=== PATIENT | male | born 1955 ===

== ENCOUNTER 2018-01-28 08:32 | Inpatient (IN) | payer BC ==
--- NOTE | 2018-01-28 11:03 | RAD ---
Date of service: 01/28/2018 HISTORY: pre op COMPARISON: No prior. TECHNIQUE: Chest PA and lateral FINDINGS: LUNGS: No active pulmonary disease. PLEURA: No significant pleural effusion identified. No pneumothorax apparent. CARDIOVASCULAR: No aortic atherosclerotic calcification present. Normal cardiac size. No pulmonary vascular congestion. OSSEOUS STRUCTURES: No significant abnormalities. VISUALIZED UPPER ABDOMEN: Normal. OTHER FINDINGS: None. IMPRESSION: No active disease.
--- NOTE | 2018-01-28 11:07 | ED PDOC ---
HPI: Back Time Seen by Provider: 01/28/18 09:00 Chief Complaint (Nursing): Back Pain Chief Complaint (Provider): Back Pain History Per: Patient, Family (Son) History/Exam Limitations: no limitations Onset/Duration Of Symptoms: Days (x4 months ago ) Additional Complaint(s): Nohelia Hernández is a 62 year old male with a past medical history of Hypertension and pinched nerve in upper back, who presents to the emergency department complaining of pain in the right arm and back. Patient states that the pain started x4 months ago and gradually got worse since. 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 Patient also reports that he fell x3 years ago. PMD: Dr. Denise Past Medical History Reviewed: Historical Data, Nursing Documentation, Vital Signs Vital Signs: Last Vital Signs Temp 98.2 F 01/28/18 08:42 Pulse 70 01/28/18 08:42 Resp 19 01/28/18 08:42 BP 155/76 H 01/28/18 08:42 Pulse Ox 98 01/28/18 08:42 - Medical History PMH: HTN Denies: Chronic Kidney Disease - Surgical History Surgical History: No Surg Hx - Family History Family History: States: Unknown Family Hx - Social History Current smoker - smoking cessation education provided: No Alcohol: None Drugs: Denies - Immunization History Hx Tetanus Toxoid Vaccination: No Hx Influenza Vaccination: Yes Hx Pneumococcal Vaccination: No - Home Medications Home Medications: Ambulatory Orders Medication Instructions Recorded Pregabalin [Lyrica] 100 mg PO Q12 01/28/18 RX: Aspirin [Ecotrin] 81 mg PO DAILY 01/28/18 RX: Losartan [Cozaar] 50 mg PO DAILY 01/28/18 RX: Naproxen [Naprosyn] 500 mg PO Q12 01/28/18 - Allergies Allergies/Adverse Reactions: Allergies Allergy/AdvReac Type Severity Reaction Status Date / Time No Known Allergies Allergy Verified 01/28/18 08:42 Review of Systems ROS Statement: Except As Marked, All Systems Reviewed And Found Negative Musculoskeletal: Positive for: Arm Pain, Back Pain Physical Exam - Reviewed Nursing Documentation Reviewed: Yes Vital Signs Reviewed: Yes - Physical Exam Appears: Positive for: Non-toxic, No Acute Distress Head Exam: Positive for: ATRAUMATIC, NORMOCEPHALIC Skin: Positive for: Normal Color, Warm, Dry Eye Exam: Positive for: Normal appearance, EOMI, PERRL ENT: Positive for: Normal ENT Inspection Neck: Positive for: Normal, Painless ROM, Supple Cardiovascular/Chest: Positive for: Regular Rate, Rhythm. Negative for: Murmur Respiratory: Positive for: Normal Breath Sounds. Negative for: Respiratory Distress Gastrointestinal/Abdominal: Positive for: Normal Exam, Soft. Negative for: Tenderness Back: Positive for: Normal Inspection. 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 Negative for: Motor/Sensory Deficits, Aphasia, Facial Droop - Laboratory Results Result Diagrams: 01/28/18 11:50 01/28/18 11:50 - ECG O2 Sat by Pulse Oximetry: 98 (RA) Pulse Ox Interpretation: Normal Medical Decision Making Medical Decision Making: Time: 10:17 Initial Plan: acute on chronic upper back and arm pain --BBK Type and screen test --EKG --CMP --Cbc with differential --PTT --PT --Chest x-ray --Morphine 2 mg IV --Urine culture --Urinalysis Time: 10:59 Chest X-ray FINDINGS: LUNGS: No active pulmonary disease. PLEURA: No significant pleural effusion identified. No pneumothorax apparent. CARDIOVASCULAR: No aortic atherosclerotic calcification present. Normal cardiac size. No pulmonary vascular congestion. OSSEOUS STRUCTURES: No significant abnormalities. VISUALIZED UPPER ABDOMEN: Normal. OTHER FINDINGS: None. IMPRESSION: No active disease. Time: 11:14 Case was discussed with Dr. Byrd who was covering for Dr. Denise. Dr. Byrd recommends patient be admitted. dr ford will consult. pt agreeable. Scribe Attestation: Documented by Lane Marcelo, acting as a scribe for Vladimir Meraz MD. Provider Scribe Attestation: All medical record entries made by the Scribe were at my direction and personally dictated by me. I have reviewed the chart and agree that the record accurately reflects my personal performance of the history, physical exam, medical decision making, and the department course for this patient. I have also personally directed, reviewed, and agree with the discharge instructions and disposition. Disposition - Clinical Impression Clinical Impression: Chronic back pain - Patient ED Disposition Is Patient to be Admitted: Yes Counseled Patient/Family Regarding: Studies Performed, Diagnosis - Disposition Disposition Time: 11:15 Condition: STABLE
[2018-01-28] MEDS ORDERED: Morphine 4 MG/ML VIAL ONE (11:44)
[2018-01-28] MEDS ORDERED: Morphine 4 MG/ML VIAL IV ONE (11:45)
[2018-01-28 12:03] LABS: BASO % 0.7 % (0.0-2.0); EOS # 0.1 K/uL (0.0-0.7); EOS % 2.2 % (0.0-4.0); HEMOGLOBIN 12.3 g/dL (12.0-18.0); LYMPH # 1.7 K/uL (1.0-4.3); LYMPH % 30.3 % (20.0-40.0); MEAN CELL VOLUME 82.1 fl (80.0-94.0); MEAN CORPUSCULAR HEMOGLOBIN 26.3 pg (27.0-31.0); MEAN PLATELET VOLUME 7.9 fl (7.2-11.7); MONO # 0.7 K/uL (0.0-0.8); MONO % 12.1 % (0.0-10.0); NEUT % 54.7 % (50.0-75.0); NRBC % 0.1 % (0.0-0.0); RBC 4.7 Mil/uL (4.40-5.90); RED CELL DISTRIBUTION WIDTH 14.8 % (11.5-14.5); WHITE BLOOD COUNT 5.5 K/uL (4.8-10.8)
[2018-01-28 12:08] LABS: SQUAMOUS EPITHIAL < 1 /hpf (0-5); URINE BACTERIA RARE (<OCC); URINE BILIRUBIN NEGATIVE (NEGATIVE); URINE BLOOD NEGATIVE (NEGATIVE); URINE CLARITY CLEAR (Clear); URINE COLOR YELLOW (YELLOW); URINE GLUCOSE (UA) NEG (Normal); URINE LEUKOCYTE ESTERASE NEG Leu/uL (Negative); URINE PROTEIN NEGATIVE (NEGATIVE); URINE UROBILINOGEN 0.2-1.0 mg/dL (0.2-1.0)
[2018-01-28 12:14] LABS: INR 1.1; PROTHROMBIN TIME 12.2 Seconds (9.8-13.1)
[2018-01-28 12:17] LABS: PARTIAL THROMBOPLASTIN TIME 29.6 Seconds (25.6-37.1)
[2018-01-28 12:27] LABS: ALT/SGPT 28 U/L (21-72); AST/SGOT 26 U/L (17-59)
[2018-01-28 12:38] LABS: ALB/GLOB RATIO 1.3 (1.0-2.1); ALBUMIN 4.2 g/dL (3.5-5.0); BLOOD UREA NITROGEN 22 mg/dl (9-20); CALCIUM 9.2 mg/dL (8.4-10.2); GFR NON-AFRICAN AMERICAN > 60
--- NOTE | 2018-01-28 12:43 | CP.PCM.HP ---
History of Present Illness - History of Present Illness History of Present Illness: 62 year old male with a past medical history of Hypertension who presents to the emergency department complaining of pain in the right arm and back. patient states history of pinched nerve in her back. He states that the pain started 4 months ago and gradually got worse since. He has been trying conservative management for pain w/o improvement. He denies recent fever, chill, cough, sob, CP, T/N/W in upper and lower ext. 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 He also reports that he fell 3 years ago. PMD: Dr. Denise PMH: HTN, chronic back pain Meds: as bellow PSH: none FMH: denies NKDA SH: denies tobacco or ilicit drugs, etoh occasional. Present on Admission - Present on Admission Any Indicators Present on Admission: No Review of Systems - Review of Systems All systems: reviewed and no additional remarkable complaints except (HPI) Past Patient History - Past Social History Smoking Status: Never Smoked - CARDIAC Hx Cardiac Disorders: Yes - PULMONARY Hx Respiratory Disorders: No - NEUROLOGICAL Hx Neurological Disorder: No - HEENT Hx HEENT Problems: No - RENAL Hx Chronic Kidney Disease: No - ENDOCRINE/METABOLIC Hx Endocrine Disorders: No - HEMATOLOGICAL/ONCOLOGICAL Hx Blood Disorders: No - INTEGUMENTARY Hx Dermatological Problems: No - MUSCULOSKELETAL/RHEUMATOLOGICAL Hx Musculoskeletal Disorders: No - GASTROINTESTINAL Hx Gastrointestinal Disorders: No - GENITOURINARY/GYNECOLOGICAL Hx Genitourinary Disorders: No - PSYCHIATRIC Hx Psychophysiologic Disorder: No Hx Substance Use: No - SURGICAL HISTORY Hx Surgeries: No - ANESTHESIA Hx Anesthesia: No Meds Allergies/Adverse Reactions: Allergies Allergy/AdvReac Type Severity Reaction Status Date / Time No Known Allergies Allergy Verified 01/28/18 08:42 Physical Exam - Constitutional Appears: No Acute Distress - Head Exam Head Exam: NORMAL INSPECTION - Eye Exam Eye Exam: EOMI - Respiratory Exam Respiratory Exam: Clear to Auscultation Bilateral, NORMAL BREATHING PATTERN - Cardiovascular Exam Cardiovascular Exam: REGULAR RHYTHM, +S1, +S2 - GI/Abdominal Exam GI & Abdominal Exam: Normal Bowel Sounds, Soft. absent: Distended, Tenderness - Back Exam Back exam: vertebral tenderness (thoracic spine) - Neurological Exam Neurological exam: Alert, CN II-XII Intact, Oriented x3 - Skin Skin Exam: Dry, Warm Results - Vital Signs Recent Vital Signs: Last Vital Signs Temp 98.2 F 01/28/18 12:22 Pulse 70 01/28/18 12:22 Resp 19 01/28/18 12:22 BP 155/76 H 01/28/18 12:22 Pulse Ox 98 01/28/18 11:18 - Labs Result Diagrams: 01/28/18 11:50 01/28/18 11:50 Labs: Laboratory Results - last 24 hr 01/28/18 01/28/18 01/28/18 11:50 11:50 11:50 WBC 5.5 RBC 4.70 Hgb 12.3 Hct 38.6 MCV 82.1 MCH 26.3 L MCHC 32.0 L RDW 14.8 H Plt Count 300 MPV 7.9 Neut % (Auto) 54.7 Lymph % (Auto) 30.3 [place] % (Auto) 12.1 H Eos % (Auto) 2.2 Baso % (Auto) 0.7 Neut # (Auto) 3.0 Lymph # (Auto) 1.7 [place] # (Auto) 0.7 Eos # (Auto) 0.1 Baso # (Auto) 0.0 PT INR APTT Sodium 141 Potassium 4.4 Chloride 104 Carbon Dioxide 27 Anion Gap 14 BUN 22 H Creatinine 0.9 Est GFR ( Amer) > 60 Est GFR (Non-Af Amer) > 60 Random Glucose 97 Calcium 9.2 Total Bilirubin 0.3 AST 26 ALT 28 Alkaline Phosphatase 44 Total Protein 7.5 Albumin 4.2 Globulin 3.3 Albumin/Globulin Ratio 1.3 Urine Color Yellow Urine Clarity Clear Urine pH 6.0 Ur Specific [place] 1.025 Urine Protein Negative Urine Glucose (UA) Neg Urine Ketones Negative Urine Blood Negative Urine Nitrate Negative Urine Bilirubin Negative Urine Urobilinogen 0.2-1.0 Ur Leukocyte Esterase Neg Urine RBC (Auto) 2 Urine Microscopic WBC < 1 Ur Squamous Epith Cells < 1 Urine Bacteria Rare BBK History Checked 01/28/18 01/28/18 11:50 11:50 WBC RBC Hgb Hct MCV MCH MCHC RDW Plt Count MPV Neut % (Auto) Lymph % (Auto) [place] % (Auto) Eos % (Auto) Baso % (Auto) Neut # (Auto) Lymph # (Auto) [place] # (Auto) Eos # (Auto) Baso # (Auto) PT 12.2 INR 1.1 APTT 29.6 Sodium Potassium Chloride Carbon Dioxide Anion Gap BUN Creatinine Est GFR ( Amer) Est GFR (Non-Af Amer) Random Glucose Calcium Total Bilirubin AST ALT Alkaline Phosphatase Total Protein Albumin Globulin Albumin/Globulin Ratio Urine Color Urine Clarity Urine pH Ur Specific [place] Urine Protein Urine Glucose (UA) Urine Ketones Urine Blood Urine Nitrate Urine Bilirubin Urine Urobilinogen Ur Leukocyte Esterase Urine RBC (Auto) Urine Microscopic WBC Ur Squamous Epith Cells Urine Bacteria BBK History Checked No verified bt Assessment & Plan - Assessment and Plan (Free Text) Assessment: 62 yo male patient with PMH of HTN and back pain admitted due to intractable back pain. For OR tomorrow with Dr Sykes Plan: - afebrile, stable - labs reviewed all wnl - CXR no active lung disease - Pain management - for neurosurgical procedure tomorrow - NPO after midnight - resumed home meds - rest of plan as ordered - medically cleared for surgery Case seen and examined with Dr Byrd.
[2018-01-28] MEDS ORDERED: Oxycodone/Acetaminophen 5/325 mg Tab PO PRN (13:05)
--- NOTE | 2018-01-28 18:49 | CARD ---
APPROVED REPORT Date of service: 01/28/2018 EKG Measurement Heart [id number] <Conclusion> Normal sinus rhythm Possible Left atrial enlargement Right bundle branch block Left anterior fascicular block Bifascicular block Left ventricular hypertrophy T wave abnormality, consider inferolateral ischemia Abnormal ECG
[2018-01-28] MEDS ORDERED: Naproxen 500 MG TAB PO SCH (21:00)
[2018-01-29] MEDS ORDERED: Pneumococcal 23-Valent Vaccine IM ONE (02:51)
--- NOTE | 2018-01-29 07:00 | CP.PCM.CON ---
History of Present Illness - History of Present Illness History of Present Illness: I was asked to see patient by Dr Byrd. Patient seen 01/29/18 [id number] Patient is a 62 year old male with HTN who has spinal stenosis. He complains of back pain and requires surgery. The patient also complains of dyspnea on exertion, particularly with walking up a hill. He was found to have and abnormal EKG. Review of Systems - Constitutional Constitutional: absent: As Per HPI, Anorexia, Chills, Daytime Sleepiness, Excessive Sweating, Fatigue, Fever, Frequent Falls, Headache, Increased Appetite, Lethargy, Malaise, Night Sweats, Snoring, Sleep Apnea, Weight Gain, Weight Loss, Weakness, Other - EENT Eyes: absent: As Per HPI, Blind Spots, Blurred Vision, Change in Vision, Decreased Night Vision, Diplopia, Discharge, Dry Eye, Exophthalmos, Floaters, Irritation, Itchy Eyes, Loss of Peripheral Vision, Pain, Photophobia, Requires Corrective Lenses, Sees Flashes, Spots in Vision, Tunnel Vision, Other Visual Disturbances, Loss of Vision, Other Ears: absent: As Per HPI, Decreased Hearing, Ear Discharge, Ear Pain, Tinnitus, Abnormal Hearing, Disequilibrium, Dizziness, Other Nose/Mouth/Throat: absent: As Per HPI, Epistaxis, Nasal Congestion, Nasal Discharge, Nasal Obstruction, Nasal Trauma, Nose Pain, Post Nasal Drip, Sinus Pain, Sinus Pressure, Bleeding Gums, Change in Voice, Dental Pain, Dry Mouth, Dysphagia, Halitosis, Hoarsness, Lip Swelling, Mouth Lesions, Mouth Pain, Odynophagia, Sore Throat, Throat Swelling, Tongue Swelling, Facial Pain, Neck Pain, Neck Mass, Other - Cardiovascular Cardiovascular: Dyspnea - Respiratory Respiratory: Dyspnea - Gastrointestinal Gastrointestinal: absent: As Per HPI, Abdominal Pain, Belching, Bloating, Change in Bowel Habits, Change in Stool Character, Coffee Ground Emesis, Constipation, Cramping, Diarrhea, Dyspepsia, Dysphagia, Early Satiety, Excessive Flatus, Fecal Incontinence, Heartburn, Hematemesis, Hematochezia, Loose Stools, Melena, Nausea, Odynophagia, Temesmus, Vomiting, Other - Genitourinary Genitourinary: absent: As Per HPI, Change in Urinary Stream, Difficulty Urinating, Dysuria, Flank Pain, Hematuria, Pyuria, Nocturia, Urinary Incontinence, Urinary Frequency, Urinary Hesitance, Urinary Urgency, Voiding Freq/Small Amts, Freq UTI, Hx Renal/Bladder Calculi, Hx /Renal Surgery, Bladder Distension, Other - Musculoskeletal Musculoskeletal: Neck Pain - Integumentary Integumentary: absent: As Per HPI, Acne, Alopecia, Bleeding Lesions, Change in Hair, Change in Nails, Change in Pigmentation, Changing Lesions, Dry Skin, Erythema, Furuncle, Hirsutism, Lesions, New Lesions, Non-Healing Lesions, Photosensitivity, Pruritus, Rash, Skin Pain, Skin Ulcer, Sores, Striae, Swe lling, Unusual Bruising, Wounds, Jaundice, Other - Neurological Neurological: absent: As Per HPI, Abnormal Gait, Abnormal Hearing, Abnormal Movements, Abnormal Speech, Behavioral Changes, Burning Sensations, Confusion, Convulsions, Disequilibrium, Dizziness, Numbness, Focal Weakness, Frequent Falls, Headaches, Lack of Coordination, Loss of Vision, Memory Loss, Paresthesias, Radicular Pain, Restless Legs, Sensory Deficit, Syncope, Tingling, Tremor, Vertigo, Weakness, Other Visual Disturbances, Other - Psychiatric Psychiatric: absent: As Per HPI, Abnormal Sleep Pattern, Anhedonia, Anxiety, Auditory Hallucinations, Behavioral Changes, Change in Appetite, Change in Libido, Confusion, Depression, Difficulty Concentrating, Hallucinations, Homicidal Ideation, Hopelessness, Irritability, Memory Loss, Mood Swings, Panic Attacks, Paranoia, Suicidal Ideation, Visual Hallucinations, Tactile Hallucinations, Other - Endocrine Endocrine: absent: As Per HPI, Change in Body Appearance, Change in Libido, Cold Intolorance, Deepening of Voice, Excessive Sweating, Fatigue, Flushing, Heat Intolorance, Increase in Ring/Shoe/Hat Size, Palpitations, Polydipsia, Polyphagia, Polyuria, Other - Hematologic/Lymphatic Hematologic: absent: As Per HPI, Easy Bleeding, Easy Bruising, Lymphadenopathy, Other Past Patient History - Past Medical History & Family History Past Medical History?: Yes - Past Social History Smoking Status: Never Smoked - CARDIAC Hx Cardiac Disorders: Yes - PULMONARY Hx Respiratory Disorders: No - NEUROLOGICAL Hx Neurological Disorder: No - HEENT Hx HEENT Problems: No - RENAL Hx Chronic Kidney Disease: No - ENDOCRINE/METABOLIC Hx Endocrine Disorders: No - HEMATOLOGICAL/ONCOLOGICAL Hx Blood Disorders: No Hx AIDS: No Hx Human Immunodeficiency Virus (HIV): No - INTEGUMENTARY Hx Dermatological Problems: No - MUSCULOSKELETAL/RHEUMATOLOGICAL Hx Musculoskeletal Disorders: No Hx Falls: No - GASTROINTESTINAL Hx Gastrointestinal Disorders: No - GENITOURINARY/GYNECOLOGICAL Hx Genitourinary Disorders: No - PSYCHIATRIC Hx Psychophysiologic Disorder: No Hx Substance Use: No - SURGICAL HISTORY Hx Surgeries: No - ANESTHESIA Hx Anesthesia: No Meds Allergies/Adverse Reactions: Allergies Allergy/AdvReac Type Severity Reaction Status Date / Time No Known Allergies Allergy Verified 01/28/18 08:42 - Medications Medications: Current Medications Aspirin (Ecotrin) 81 mg PO DAILY [facility] Losartan Potassium (Cozaar) 50 mg PO DAILY [facility] Naproxen (Naproxen) 500 mg PO Q12 [facility] Last Admin: 01/28/18 22:26 Dose: 500 mg Oxycodone/Acetaminophen (Percocet 5/325 Mg Tab) 1 tab PO Q4 PRN PRN Reason: Pain, moderate (4-7) Stop: 01/31/18 13:06 Pregabalin (Lyrica) 100 mg PO Q12 [facility] Last Admin: 01/28/18 22:25 Dose: 100 mg Physical Exam - Constitutional Appears: Non-toxic - Head Exam Head Exam: NORMAL INSPECTION - Eye Exam Eye Exam: Normal appearance - ENT Exam ENT Exam: Mucous Membranes Moist - Neck Exam Neck exam: Positive for: Full Rom, Normal Inspection - Respiratory Exam Respiratory Exam: NORMAL BREATHING PATTERN - Cardiovascular Exam Cardiovascular Exam: REGULAR RHYTHM. absent: Systolic Murmur - GI/Abdominal Exam GI & Abdominal Exam: Normal Bowel Sounds - Rectal Exam Rectal Exam: Deferred - Extremities Exam Extremities exam: Positive for: pedal edema - Back Exam Back exam: NORMAL INSPECTION - Neurological Exam Neurological exam: Alert, Oriented x3 - Psychiatric Exam Psychiatric exam: Normal Affect - Skin Skin Exam: Normal Color Results - Vital Signs Recent Vital Signs: Last Vital Signs Temp 97.6 F 01/29/18 01:00 Pulse 62 01/29/18 01:00 Resp 18 01/29/18 01:00 BP 119/67 01/29/18 01:00 Pulse Ox 99 01/29/18 01:00 - Labs Result Diagrams: 01/28/18 11:50 01/28/18 11:50 Labs: Laboratory Results - last 24 hr 01/28/18 01/28/18 01/28/18 11:50 11:50 11:50 WBC 5.5 RBC 4.70 Hgb 12.3 Hct 38.6 MCV 82.1 MCH 26.3 L MCHC 32.0 L RDW 14.8 H Plt Count 300 MPV 7.9 Neut % (Auto) 54.7 Lymph % (Auto) 30.3 [place] % (Auto) 12.1 H Eos % (Auto) 2.2 Baso % (Auto) 0.7 Neut # (Auto) 3.0 Lymph # (Auto) 1.7 [place] # (Auto) 0.7 Eos # (Auto) 0.1 Baso # (Auto) 0.0 PT INR APTT Sodium 141 Potassium 4.4 Chloride 104 Carbon Dioxide 27 Anion Gap 14 BUN 22 H Creatinine 0.9 Est GFR ( Amer) > 60 Est GFR (Non-Af Amer) > 60 Random Glucose 97 Calcium 9.2 Total Bilirubin 0.3 AST 26 ALT 28 Alkaline Phosphatase 44 Troponin I Total Protein 7.5 Albumin 4.2 Globulin 3.3 Albumin/Globulin Ratio 1.3 Urine Color Yellow Urine Clarity Clear Urine pH 6.0 Ur Specific [place] 1.025 Urine Protein Negative Urine Glucose (UA) Neg Urine Ketones Negative Urine Blood Negative Urine Nitrate Negative Urine Bilirubin Negative Urine Urobilinogen 0.2-1.0 Ur Leukocyte Esterase Neg Urine RBC (Auto) 2 Urine Microscopic WBC < 1 Ur Squamous Epith Cells < 1 Urine Bacteria Rare Blood Type Blood Type Confirm Antibody Screen BBK History Checked 01/28/18 01/28/18 01/28/18 11:50 11:50 12:50 WBC RBC Hgb Hct MCV MCH MCHC RDW Plt Count MPV Neut % (Auto) Lymph % (Auto) [place] % (Auto) Eos % (Auto) Baso % (Auto) Neut # (Auto) Lymph # (Auto) [place] # (Auto) Eos # (Auto) Baso # (Auto) PT 12.2 INR 1.1 APTT 29.6 Sodium Potassium Chloride Carbon Dioxide Anion Gap BUN Creatinine Est GFR ( Amer) Est GFR (Non-Af Amer) Random Glucose Calcium Total Bilirubin AST ALT Alkaline Phosphatase Troponin I Total Protein Albumin Globulin Albumin/Globulin Ratio Urine Color Urine Clarity Urine pH Ur Specific [place] Urine Protein Urine Glucose (UA) Urine Ketones Urine Blood Urine Nitrate Urine Bilirubin Urine Urobilinogen Ur Leukocyte Esterase Urine RBC (Auto) Urine Microscopic WBC Ur Squamous Epith Cells Urine Bacteria Blood Type A POSITIVE Blood Type Confirm A POSITIVE Antibody Screen Negative BBK History Checked No verified bt 01/28/18 01/29/18 19:00 04:40 WBC RBC Hgb Hct MCV MCH MCHC RDW Plt Count MPV Neut % (Auto) Lymph % (Auto) [place] % (Auto) Eos % (Auto) Baso % (Auto) Neut # (Auto) Lymph # (Auto) [place] # (Auto) Eos # (Auto) Baso # (Auto) PT INR APTT Sodium Potassium Chloride Carbon Dioxide Anion Gap BUN Creatinine Est GFR ( Amer) Est GFR (Non-Af Amer) Random Glucose Calcium Total Bilirubin AST ALT Alkaline Phosphatase Troponin I 0.0140 0.0150 Total Protein Albumin Globulin Albumin/Globulin Ratio Urine Color Urine Clarity Urine pH Ur Specific [place] Urine Protein Urine Glucose (UA) Urine Ketones Urine Blood Urine Nitrate Urine Bilirubin Urine Urobilinogen Ur Leukocyte Esterase Urine RBC (Auto) Urine Microscopic WBC Ur Squamous Epith Cells Urine Bacteria Blood Type Blood Type Confirm Antibody Screen BBK History Checked - EKG Data EKG shows normal: Sinus rhythm - EKG Data EKG comments: inferolaterla T wave inversions suggestive of ischemia Assessment & Plan (1) Dyspnea Assessment and Plan: Patient has an abnormal EKG consistent with previous ischemia. recommend evaluation for myocardial ischemia Status: Acute (2) HTN (hypertension) Assessment and Plan: blood pressure control Status: Acute (3) Pre-operative cardiovascular exam, new EKG abnormalities c/w ischemia Assessment and Plan: patient is not optimized for surgery. will need stress test given EKG abnormalities and dyspnea. Status: Acute
--- NOTE | 2018-01-29 07:17 | CP.PCM.CON ---
History of Present Illness - History of Present Illness History of Present Illness: Neurosurgical consult: Dr. Sykes Patient is a 63 y/o RHD male who presents with severe neck pain which has progressed over the past four months. He reports lifting a heavy pack of isabella material 4 months ago which initiated the neck pain. The pain has been daily, affecting his usual activities. He has tried and failed conservative management with PT and oral medications. The pain is sharp and stabbing and located diffuse posteriorly. The pain frequently radiates down both UE, worse in the right. 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 He admits to dyspnea on exertion and is currently being worked up by cardiology for ischemic changes. He denies any difficulty ambulating/SOB/N/V/D/fever/dysuria/melena. Review of Systems - Review of Systems Review of Systems: as per HPI Past Patient History - Past Medical History & Family History Past Medical History?: Yes Past Family History: Reviewed and not pertinent - Past Social History Smoking Status: Never Smoked Alcohol: Occasional Drugs: Denies - CARDIAC Hx Cardiac Disorders: Yes - PULMONARY Hx Respiratory Disorders: No - NEUROLOGICAL Hx Neurological Disorder: No - HEENT Hx HEENT Problems: No - RENAL Hx Chronic Kidney Disease: No - ENDOCRINE/METABOLIC Hx Endocrine Disorders: No - HEMATOLOGICAL/ONCOLOGICAL Hx Blood Disorders: No Hx AIDS: No Hx Human Immunodeficiency Virus (HIV): No - INTEGUMENTARY Hx Dermatological Problems: No - MUSCULOSKELETAL/RHEUMATOLOGICAL Hx Musculoskeletal Disorders: No Hx Falls: No - GASTROINTESTINAL Hx Gastrointestinal Disorders: No - GENITOURINARY/GYNECOLOGICAL Hx Genitourinary Disorders: No - PSYCHIATRIC Hx Psychophysiologic Disorder: No Hx Substance Use: No - SURGICAL HISTORY Hx Surgeries: No - ANESTHESIA Hx Anesthesia: No Meds Allergies/Adverse Reactions: Allergies Allergy/AdvReac Type Severity Reaction Status Date / Time No Known Allergies Allergy Verified 01/28/18 08:42 - Medications Medications: Current Medications Aspirin (Ecotrin) 81 mg PO DAILY [facility] Losartan Potassium (Cozaar) 50 mg PO DAILY [facility] Naproxen (Naproxen) 500 mg PO Q12 [facility] Last Admin: 01/28/18 22:26 Dose: 500 mg Oxycodone/Acetaminophen (Percocet 5/325 Mg Tab) 1 tab PO Q4 PRN PRN Reason: Pain, moderate (4-7) Stop: 01/31/18 13:06 Pregabalin (Lyrica) 100 mg PO Q12 [facility] Last Admin: 01/28/18 22:25 Dose: 100 mg Physical Exam - Constitutional Appears: Well, No Acute Distress - Head Exam Head Exam: ATRAUMATIC, NORMOCEPHALIC - Eye Exam Eye Exam: EOMI, Normal appearance, PERRL - ENT Exam ENT Exam: Mucous Membranes Moist - Neck Exam Additional comments: Cervical midline tenderness, no paraspinal tenderness no lesions, no masses, no erythema sensation and motor intact AXN/MN/UN/RN. 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 absent: Tenderness - Neurological Exam Neurological exam: Alert, CN II-XII Intact, Oriented x3 - Psychiatric Exam Psychiatric exam: Normal Affect, Normal Mood - Skin Skin Exam: Normal Color, Warm Results - Vital Signs Recent Vital Signs: Last Vital Signs Temp 97.6 F 01/29/18 01:00 Pulse 62 01/29/18 01:00 Resp 18 01/29/18 01:00 BP 119/67 01/29/18 01:00 Pulse Ox 99 01/29/18 01:00 - Labs Result Diagrams: 01/28/18 11:50 01/28/18 11:50 Labs: Laboratory Results - last 24 hr 01/28/18 01/28/18 01/28/18 11:50 11:50 11:50 WBC 5.5 RBC 4.70 Hgb 12.3 Hct 38.6 MCV 82.1 MCH 26.3 L MCHC 32.0 L RDW 14.8 H Plt Count 300 MPV 7.9 Neut % (Auto) 54.7 Lymph % (Auto) 30.3 [place] % (Auto) 12.1 H Eos % (Auto) 2.2 Baso % (Auto) 0.7 Neut # (Auto) 3.0 Lymph # (Auto) 1.7 [place] # (Auto) 0.7 Eos # (Auto) 0.1 Baso # (Auto) 0.0 PT INR APTT Sodium 141 Potassium 4.4 Chloride 104 Carbon Dioxide 27 Anion Gap 14 BUN 22 H Creatinine 0.9 Est GFR ( Amer) > 60 Est GFR (Non-Af Amer) > 60 Random Glucose 97 Calcium 9.2 Total Bilirubin 0.3 AST 26 ALT 28 Alkaline Phosphatase 44 Troponin I Total Protein 7.5 Albumin 4.2 Globulin 3.3 Albumin/Globulin Ratio 1.3 Urine Color Yellow Urine Clarity Clear Urine pH 6.0 Ur Specific [place] 1.025 Urine Protein Negative Urine Glucose (UA) Neg Urine Ketones Negative Urine Blood Negative Urine Nitrate Negative Urine Bilirubin Negative Urine Urobilinogen 0.2-1.0 Ur Leukocyte Esterase Neg Urine RBC (Auto) 2 Urine Microscopic WBC < 1 Ur Squamous Epith Cells < 1 Urine Bacteria Rare Blood Type Blood Type Confirm Antibody Screen BBK History Checked 01/28/18 01/28/18 01/28/18 11:50 11:50 12:50 WBC RBC Hgb Hct MCV MCH MCHC RDW Plt Count MPV Neut % (Auto) Lymph % (Auto) [place] % (Auto) Eos % (Auto) Baso % (Auto) Neut # (Auto) Lymph # (Auto) [place] # (Auto) Eos # (Auto) Baso # (Auto) PT 12.2 INR 1.1 APTT 29.6 Sodium Potassium Chloride Carbon Dioxide Anion Gap BUN Creatinine Est GFR ( Amer) Est GFR (Non-Af Amer) Random Glucose Calcium Total Bilirubin AST ALT Alkaline Phosphatase Troponin I Total Protein Albumin Globulin Albumin/Globulin Ratio Urine Color Urine Clarity Urine pH Ur Specific [place] Urine Protein Urine Glucose (UA) Urine Ketones Urine Blood Urine Nitrate Urine Bilirubin Urine Urobilinogen Ur Leukocyte Esterase Urine RBC (Auto) Urine Microscopic WBC Ur Squamous Epith Cells Urine Bacteria Blood Type A POSITIVE Blood Type Confirm A POSITIVE Antibody Screen Negative BBK History Checked No verified bt 01/28/18 01/29/18 19:00 04:40 WBC RBC Hgb Hct MCV MCH MCHC RDW Plt Count MPV Neut % (Auto) Lymph % (Auto) [place] % (Auto) Eos % (Auto) Baso % (Auto) Neut # (Auto) Lymph # (Auto) [place] # (Auto) Eos # (Auto) Baso # (Auto) PT INR APTT Sodium Potassium Chloride Carbon Dioxide Anion Gap BUN Creatinine Est GFR ( Amer) Est GFR (Non-Af Amer) Random Glucose Calcium Total Bilirubin AST ALT Alkaline Phosphatase Troponin I 0.0140 0.0150 Total Protein Albumin Globulin Albumin/Globulin Ratio Urine Color Urine Clarity Urine pH Ur Specific [place] Urine Protein Urine Glucose (UA) Urine Ketones Urine Blood Urine Nitrate Urine Bilirubin Urine Urobilinogen Ur Leukocyte Esterase Urine RBC (Auto) Urine Microscopic WBC Ur Squamous Epith Cells Urine Bacteria Blood Type Blood Type Confirm Antibody Screen BBK History Checked Assessment & Plan (1) Cervical spondylosis Assessment and Plan: -Dr. Sykes proposes anterior cervical discectomy and fusion at level C3-C4 once cleared -Awaiting medical/cardiac clearance -pain control -hold oral anticoagulation -will follow -above d/w Dr. Sykes in agreement Status: Acute
--- NOTE | 2018-01-29 10:59 | CARD ---
APPROVED REPORT Date of service: 01/28/2018 EKG Measurement Heart [id number] <Conclusion> Normal sinus rhythm Possible Left atrial enlargement Right bundle branch block Left anterior fascicular block Bifascicular block Left ventricular hypertrophy T wave abnormality, consider inferolateral ischemia Abnormal ECG
[2018-01-29] MEDS: Lidocaine 5% Patch TD SCH (11:03)
--- NOTE | 2018-01-29 11:58 | CP.PCM.PN ---
Subjective - Date & Time of Evaluation Date of Evaluation: 01/29/18 Time of Evaluation: 11:58 - Subjective Subjective: Patient seen and examined this morning at bedside, endorses feeling better, denies sob or chest pain at this time. Evaluated by cardio, going for stress test. Objective - Vital Signs/Intake and Output Vital Signs (last 24 hours): Temp Pulse Resp BP Pulse Ox 98.0 F 66 20 125/71 97 01/29/18 08:07 01/29/18 09:58 01/29/18 08:07 01/29/18 09:58 01/29/18 08:07 - Medications Medications: Current Medications Acetaminophen (Tylenol 325mg Tab) 650 mg PO Q6 PRN PRN Reason: Pain, Mild (1-3) Last Admin: 01/29/18 11:02 Dose: 650 mg Aspirin (Ecotrin) 81 mg PO DAILY [facility] Last Admin: 01/29/18 10:16 Dose: Not Given Lidocaine (Lidoderm) 1 ea TD DAILY [facility] Last Admin: 01/29/18 11:03 Dose: 1 ea Losartan Potassium (Cozaar) 50 mg PO DAILY [facility] Last Admin: 01/29/18 09:58 Dose: 50 mg Oxycodone/Acetaminophen (Percocet 5/325 Mg Tab) 1 tab PO Q4 PRN PRN Reason: Pain, moderate (4-7) Stop: 01/31/18 13:06 Pregabalin (Lyrica) 100 mg PO Q12 [facility] Last Admin: 01/29/18 09:57 Dose: 100 mg - Labs Labs: 01/28/18 11:50 01/28/18 11:50 PT 12.2 Seconds (9.8-13.1) 01/28/18 11:50 INR 1.1 01/28/18 11:50 APTT 29.6 Seconds (25.6-37.1) 01/28/18 11:50 - Constitutional Appears: No Acute Distress - Head Exam Head Exam: NORMAL INSPECTION - Respiratory Exam Respiratory Exam: Clear to Ausculation Bilateral, NORMAL BREATHING PATTERN - Cardiovascular Exam Cardiovascular Exam: REGULAR RHYTHM, +S1, +S2. absent: Tachycardia - GI/Abdominal Exam GI & Abdominal Exam: Soft, Normal Bowel Sounds. absent: Distended, Tenderness - Extremities Exam Extremities Exam: absent: Calf Tenderness, Pedal Edema - Neurological Exam Neurological Exam: Alert, Awake, Oriented x3 Assessment and Plan - Assessment and Plan (Free Text) Assessment: 62 yo male patient with PMH of HTN and cervical spondylosis admitted for intractable back pain. Plan: - afebrile, stable - labs reviewed all wnl - CXR no active lung disease - Pain management - Cardio consulted due to abnormal EKG, going for stress test - Neurosurgery consulted - resumed home meds - not cleared for surgery at tis time - rest of plan as ordered Case seen and examined with Dr Byrd.
--- NOTE | 2018-01-29 18:07 | CARD ---
APPROVED REPORT Date of service: 01/29/2018 EXAM: Two-dimensional and M-mode echocardiogram with Doppler and color Doppler. Other Information Quality : ExcellentRhythm : NSR INDICATION Abnormal EKG/Arrhythmia 2D DIMENSIONS IVSd1.38 (0.7-1.1cm)LVDd4.87 (3.9-5.9cm) LVOT Diameter2.28 (1.8-2.4cm)PWd1.17 (0.7-1.1cm) IVSs1.60 (0.8-1.2cm)LVDs4.13 (2.5-4.0cm) FS (%) 15.2 %PWs1.64 (0.8-1.2cm) M-Mode DIMENSIONS Left Atrium (MM)3.94 (2.5-4.0cm)IVSd1.12 (0.7-1.1cm) Aortic Root2.88 (2.2-3.7cm)LVDd5.35 (4.0-5.6cm) Aortic Cusp Exc.2.09 (1.5-2.0cm)PWd0.91 (0.7-1.1cm) IVSs1.21 cmFS (%) 23 % LVDs4.12 (2.0-3.8cm)PWs1.18 cm Aortic Valve AoV Peak Nnfnhemv588.8cm/sAoV VTI24.7cmAO Peak GR.5mmHg LVOT Peak Bjfksxer12.0cm/sLVOT VTI14.53cmAO Mean GR.3mmHg ORQUIDEA (VMAX)1.20vj3GJH (VTI)1.46cm2 Mitral Valve MV E Uymoxsvj84.5cm/sMV DECEL TQHP548qtAN A Ssdrrxva43.1cm/s MV KFH43bdP/A ratio0.6MVA (PHT)2.86cm2 TDI Lateral E' Peak V6.84cm/sMedial E' Peak V5.30cm/sE/Lateral E'5.6 E/Medial E'7.3 LEFT VENTRICLE The left ventricle is normal size. There is mild concentric left ventricular hypertrophy. The systolic function is low normal. The estimated ejection fraction is 50-55% There is normal LV segmental wall motion. Transmitral Doppler flow pattern is Grade I-abnormal relaxation pattern. No left ventricle thrombus noted on this study. There is no ventricular septal defect visualized. There is no left ventricular aneurysm. There is no mass noted in the left ventricle. RIGHT VENTRICLE The right ventricle is normal size. There is normal right ventricular wall thickness. The right ventricular systolic function is normal. ATRIA The left atrium is mildly dilated. The right atrium size is normal. The interatrial septum is intact with no evidence for an atrial septal defect. AORTIC VALVE The aortic valve is normal in structure. No aortic regurgitation is present. There is no aortic valvular stenosis. There is no aortic valvular vegetation. MITRAL VALVE The mitral valve is normal in structure. There is no evidence of mitral valve prolapse. There is no mitral valve stenosis. There is no mitral valve regurgitation noted. TRICUSPID VALVE The tricuspid valve is normal in structure. There is trace tricuspid valve regurgitation noted. There is no tricuspid valve prolapse or vegetation. There is no tricuspid valve stenosis. PULMONIC VALVE The pulmonary valve is normal in structure. There is no pulmonic valvular regurgitation. There is no pulmonic valvular stenosis. GREAT VESSELS The aortic root is normal in size. The ascending aorta is normal in size. The pulmonary artery is normal. The IVC is normal in size and collapses >50% with inspiration. PERICARDIAL EFFUSION There is no pericardial effusion. There is no pleural effusion. <Conclusion> There is mild concentric left ventricular hypertrophy. The systolic function is low normal. The estimated ejection fraction is 50-55% Transmitral Doppler flow pattern is Grade I-abnormal relaxation pattern. The left atrium is mildly dilated. Global LV strain is abnormal (-12) There is trace tricuspid valve regurgitation noted.
[2018-01-30] MEDS ORDERED: Caffeine Citrated **INJ** 20 MG/ML IV ONE (10:16)
[2018-01-30] MEDS: Lidocaine 5% Patch TD SCH (11:29)
--- NOTE | 2018-01-30 17:53 | CARD ---
APPROVED REPORT Date of service: 01/29/2018 Protocol: LEXISCAN Test Type: Stress Nuclear Medications: ECOTRIN 81MG, TYLENOLOL 650MG, LIDODERM PATCH PERCOCET 5/325 MG LYRICA 100MG, Medical History: HYPERTENSION, CHRONIC BACK PAIN , SPINAL STENOSIS Target HR: 156 bpm Resting ECG: abnormal Resting Heart Rate: 61 bpm Resting Blood Pressure: 141/84mmHg submaximum (85%): 133 bpm TEST SUMMARY [id number]. [id number]. INJECTIONNS FLUSH00:[id number]/69.0. INJECTIONNUC MED00:[id number]. [id number]/[id number]. PROCEDURE Pharmacologic stress testing was performed using 0.4mg per 5ml of regadenoson given intravenously over 7-10 seconds. POST EXERCISE Reason for Termination: Fatigue Target HR: No Max HR: 75 bpm 64% of Maximum Predicted HR: 156 bpm Exercise duration: 01:00 min:sec, 0 Stage Exercise capacity: 1.0METs Max Blood Pressure: 153/69mmHg Blood Pressure response to exercise: normal resting BP - appropriate response Heart Rate response to exercise: appropriate Chest Pain: Yes, limiting Angina index: 0 Arrhythmia: No, none ST Change: Yes, Depression downsloping Deviation: 0 mm Clinical Indications Under Appropriate Use Criteria Patient was referred for Lexiscan stress test due to history of pain on spine due to spinal stenosis. Patient is unable to exercise Stress EKG Interpretation Resting electrocardiogram showed RBBB wtih st changes T wave inversion on V4 to V6. During the injection of Lexiscan showed evidence of worsening of the T waves on the lateral leads V4 to V6. Patient had episode of chest pain which improved after a few minutes after the test without any medications. RESTING ECG Rhythm: Sinus Conduction: RBBB Arrhythmias: None Repolarization: ST depression STRESS ECG Rhythm: Sinus Conduction: RBBB Arrhythmias: None Repolarization: ST depression ST-Segment changes: Nondiagnostic resting ST abnormalities. EXAM: Myocardial Perfusion REST/STRESS Image QualityGood Imaging Protocol The imaging protocol used to acquire images was Rest Tc-99m/stress Tc-99m 1 day Rest Spect myocardial perfusion imaging was performed in supine position 60 minutes following the injection of 10 mCi of Tc-99 Myoview. Time of rest injection: 7;42 Time of rest imagin:41 At peak stress, the patient was injected intravenously with 30mCi of Tc-99 tetrofosmin after an infusion time of minutes and seconds. Time of stress injection: 10:40 Time of stress imagin:31 Gated Stress Spect was performed 111 minutes after intravenous Tc-99 Myoview injection. The images were gated to evaluate regional wall motion and calculate ventricular ejection fraction. NUCLEAR IMAGE INTERPRETATION Study quality was excellent. Left Ventricular size was Enlarged at Rest and Stress. Lung uptake was Normal. Left Ventricular ejection fraction is 35%. LV Perfusion Abnormal overall persusion of the left ventricle suggestive of infiltrative disease. Thre is a small reversible defect of the LAD region but overall no major reversible defect noticed. LV Perfusion 1 Perfusion Defect Location: mid anterolateral Perfusion Defect Size: Small (1-2 segments) Perfusion Defect Severity: Mild Type of Perfusion Defect: Reversible Wall Motion Severe diffuse wall motion abnormalities with enlargement of the left ventricle CONCLUSION 1. 1- Abnormal Lexiscan stress test with diffsuse perfusion abnormalities of the left ventricle suggestive of infiltrative cardiac disease. 2. 2- Small reversible defect on the LAD region Recommendation Further studies recommended like Cardiac catheterization Case discusse [facility] Dr Aniya Durant consulting Cardioglogist.
--- NOTE | 2018-01-31 07:31 | CP.PCM.PN ---
Subjective - Date & Time of Evaluation Date of Evaluation: 01/31/18 Time of Evaluation: 07:15 - Subjective Subjective: patient has no current chest pain. no dyspnea Objective - Vital Signs/Intake and Output Vital Signs (last 24 hours): Temp Pulse Resp BP Pulse Ox 97.7 F 64 16 113/70 97 01/31/18 04:35 01/31/18 04:35 01/31/18 04:35 01/31/18 04:35 01/31/18 04:35 - Medications Medications: Current Medications Acetaminophen (Tylenol 325mg Tab) 650 mg PO Q6 PRN PRN Reason: Pain, Mild (1-3) Last Admin: 01/29/18 11:02 Dose: 650 mg Aspirin (Ecotrin) 81 mg PO DAILY [facility] Last Admin: 01/30/18 11:29 Dose: 81 mg Enoxaparin Sodium (Lovenox) 40 mg SC DAILY [facility]; Protocol Lidocaine (Lidoderm) 1 ea TD DAILY [facility] Last Admin: 01/30/18 11:29 Dose: 1 ea Losartan Potassium (Cozaar) 50 mg PO DAILY [facility] Last Admin: 01/30/18 11:29 Dose: 50 mg Oxycodone/Acetaminophen (Percocet 5/325 Mg Tab) 1 tab PO Q4 PRN PRN Reason: Pain, moderate (4-7) Stop: 01/31/18 13:06 Last Admin: 01/29/18 18:05 Dose: 1 tab Pregabalin (Lyrica) 100 mg PO Q12 [facility] Last Admin: 01/30/18 20:55 Dose: 100 mg - Labs Labs: 01/28/18 11:50 01/28/18 11:50 PT 12.2 Seconds (9.8-13.1) 01/28/18 11:50 INR 1.1 01/28/18 11:50 APTT 29.6 Seconds (25.6-37.1) 01/28/18 11:50 - Constitutional Appears: Non-toxic - Head Exam Head Exam: NORMAL INSPECTION - Eye Exam Eye Exam: Normal appearance - ENT Exam ENT Exam: Mucous Membranes Moist - Neck Exam Neck Exam: Full ROM - Respiratory Exam Respiratory Exam: NORMAL BREATHING PATTERN - Cardiovascular Exam Cardiovascular Exam: REGULAR RHYTHM - GI/Abdominal Exam GI & Abdominal Exam: Normal Bowel Sounds - Rectal Exam Rectal Exam: Deferred - Extremities Exam Extremities Exam: absent: Pedal Edema - Back Exam Back Exam: NORMAL INSPECTION - Neurological Exam Neurological Exam: Alert - Psychiatric Exam Psychiatric exam: Normal Affect - Skin Skin Exam: Normal Color Assessment and Plan (1) Dyspnea Assessment & Plan: stress test reviewed. abnormal nuclear stress test suggestive of CAD. cardiomyopathy. will d/c home today, schedule for cardiac cath as outpatient. Status: Acute (2) HTN (hypertension) Assessment & Plan: decrese Losartan to 25 mg daily. add Coreg 6.25 mg BID Status: Acute (3) Pre-operative cardiovascular exam, new EKG abnormalities c/w ischemia Assessment & Plan: has abnormal nuclear stress test suggesive of CAD. will cancel surgery. patient will require cardiac cath prior to surgery. Status: Acute (4) CAD (coronary artery disease) Assessment & Plan: add ASA 81 mg daily, Plavix 75 mg daily. d/c home and schedule outpatient cardiac cath Status: Acute
[2018-01-31 07:38] VITALS: BP 129/77; PULSE 77; RESP 20; TEMP 97.2; O2SAT 96
--- NOTE | 2018-01-31 08:57 | CP.PCM.PCO ---
Assessment & Plan - Assessment and Plan (Free Text) Assessment: patient seen and examined, doing well this morning, denies cp, dyspnea, palpitation patient with abnl stress test, plan for cardicac cath outpatient with cont. Asa, plavix, BB Coreg, Lipitor, cozaar pt. to f/u with for sx post cath and clearance cleared for d/c by Above d/w
[2018-01-31] MEDS ORDERED: Enoxaparin 40 mg Syringe SC SCH (09:00)
[2018-01-31] MEDS: Lidocaine 5% Patch TD SCH (09:01)
== END 2018-01-31 12:31 | disposition home or self-care (01) | DRG 552 ==
LOC: H.ER 08:32 → H.ERHOLD 11:14 → INTOOBSV 11:14 → H.TEL 21:31 → OBSVTOIN 01-30 14:37
PROVIDERS: ADMIT Family Medicine; ATTEND Family Medicine
DX: M47.812 Spondylosis without myelopathy or radiculopathy, cervical region (principal); G89.29 Other chronic pain; I10 Essential (primary) hypertension; I25.10 Atherosclerotic heart disease of native coronary artery without angina pectoris; R94.31 Abnormal electrocardiogram [ECG] [EKG]; Z79.02 Long term (current) use of antithrombotics/antiplatelets

== ENCOUNTER 2018-03-25 09:38 | Emergency (ER) | payer BC ==
[2018-03-25 10:01] VITALS: TEMP 98; O2SAT 98
--- NOTE | 2018-03-25 11:39 | ED PDOC ---
HPI: Back Time Seen by Provider: 03/25/18 10:39 Chief Complaint (Nursing): Upper Extremity Problem/Injury Chief Complaint (Provider): neck and back pain History Per: Patient History/Exam Limitations: no limitations Additional Complaint(s): 62 y/o M with arthritis and hx of chronic back pain from "pinched nerve" and HTN who presents with persistent neck, back, shoulder and knee pain for the past 6 months. He has been taking Naproxen (last dose was yesterday) and Tylenol PM with minimal improvement in pain. He states that he has had a few falls in the past 6 months, last one about 1 month ago due to loss of balance due to B/L knee pain. He states that he is scheduled for back surgery on Apr 02. He has numbness and tingling in B/L arms, which is chronic. Denies fever, chills, night sweats, recent trauma. Past Medical History Reviewed: Historical Data, Nursing Documentation, Vital Signs Vital Signs: Last Vital Signs Temp 98 F 03/25/18 09:58 Pulse 78 03/25/18 09:58 Resp 20 03/25/18 09:58 BP 178/89 H 03/25/18 09:58 Pulse Ox 98 03/25/18 09:58 - Medical History PMH: Arthritis, HTN Denies: HIV, Chronic Kidney Disease Other PMH: herniated discs - Family History Family History: States: Unknown Family Hx - Immunization History Hx Tetanus Toxoid Vaccination: No Hx Influenza Vaccination: Yes Hx Pneumococcal Vaccination: No - Home Medications Home Medications: Ambulatory Orders Medication Instructions Recorded Pregabalin [Lyrica] 100 mg PO Q12 01/28/18 Acetaminophen [Tylenol 325mg tab] 650 mg PO Q6 PRN tab 01/31/18 Aspirin [Ecotrin] 81 mg PO DAILY #30 tabec 01/31/18 Atorvastatin [Lipitor] 10 mg PO DAILY #30 tab 01/31/18 Carvedilol [Coreg] 6.25 mg PO Q12 #60 tab 01/31/18 Clopidogrel [Plavix] 75 mg PO DAILY #30 tab 01/31/18 Lidocaine 5% [Lidoderm] 1 ea TD DAILY #30 patch 01/31/18 Losartan [Cozaar] 25 mg PO DAILY #30 tab 01/31/18 - Allergies Allergies/Adverse Reactions: Allergies Allergy/AdvReac Type Severity Reaction Status Date / Time No Known Allergies Allergy Verified 03/25/18 09:58 Review of Systems Constitutional: Negative for: Fever, Chills Musculoskeletal: Positive for: Neck Pain, Shoulder Pain, Back Pain, Other (knee pain) Neurological: Negative for: Weakness Physical Exam - Reviewed Nursing Documentation Reviewed: Yes Vital Signs Reviewed: Yes - Physical Exam Appears: Positive for: Uncomfortable Head Exam: Positive for: ATRAUMATIC Skin: Positive for: Normal Color Neck: Positive for: Decreased ROM (decreased passive and active ROM with Right lateral rotation, normal ROM with left lateral rotation. Normal flexion and extension) Cardiovascular/Chest: Positive for: Regular Rate, Rhythm Respiratory: Positive for: Normal Breath Sounds Back: Positive for: Normal Inspection, Vertebral Tenderness (paravertebral tenderness along cervical, thoracic and lumbar spine. ) Neurologic/Psych: Positive for: Alert, Oriented - ECG O2 Sat by Pulse Oximetry: 98 Medical Decision Making Medical Decision Making: Toradol 30mg IM x 1 Flexeril 10mg PO x 1 12:30pm: re-evaluated, pt feels slightly better and more able to move his neck. He states that he has an appointment with his surgeon tomorrow. Disposition - Clinical Impression Clinical Impression: Chronic back pain, Neck pain - Patient ED Disposition Is Patient to be Admitted: No - Disposition Disposition: Routine/Home Disposition Time: 12:35 Condition: STABLE Forms: [employer] (Syriac)
[2018-03-25 13:05] VITALS: BP 170/98; PULSE 82; RESP 16
== END 2018-03-25 13:04 | disposition home or self-care (01) ==
LOC: H.ER 09:38
DX: M54.2 Cervicalgia (principal); M54.9 Dorsalgia, unspecified; G89.29 Other chronic pain; I10 Essential (primary) hypertension; Z79.82 Long term (current) use of aspirin
CPT/HCPCS: 96372; 99283; J1885

== ENCOUNTER 2018-04-01 10:03 | Inpatient (IN) | payer BC ==
[2018-04-01 10:18] VITALS: BMI 23.6
--- NOTE | 2018-04-01 11:06 | ED PDOC ---
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; pt denies fever or other trauma; pt acknowledges radiating pain down the right arm accompanied by numbness and tingling Past Medical History Reviewed: Historical Data, Nursing Documentation, Vital Signs Vital Signs: Last Vital Signs Temp 97.3 F L 04/01/18 10:14 Pulse 81 04/01/18 10:14 Resp 16 04/01/18 10:14 BP 167/82 H 04/01/18 10:14 Pulse Ox 99 04/01/18 10:14 - Medical History PMH: Arthritis, HTN Denies: HIV, Chronic Kidney Disease - Family History Family History: States: Unknown Family Hx - Immunization History Hx Tetanus Toxoid Vaccination: No Hx Influenza Vaccination: Yes Hx Pneumococcal Vaccination: No - Home Medications Home Medications: Ambulatory Orders Medication Instructions Recorded RX: Atorvastatin [Lipitor] 10 mg PO DAILY #30 tab 01/31/18 RX: Carvedilol [Coreg] 6.25 mg PO Q12 #60 tab 01/31/18 RX: Acetaminophen/Diphenhydramine 2 tab PO HS 04/01/18 [Tylenol Pm Ex-Strength Caplet] RX: Naproxen [Naprosyn] 500 mg PO Q12 PRN 04/01/18 RX: Telmisartan 20 mg PO DAILY 04/01/18 RX: Cyclobenzaprine [Flexeril] 10 mg PO Q8 PRN #20 tab 04/03/18 RX: Dexamethasone [Decadron] 4 mg PO Q12 tab 04/03/18 RX: oxyCODONE/Acetaminophen 1 tab PO Q4 PRN #10 tab 04/03/18 [Percocet 5/325 mg Tab] - Allergies Allergies/Adverse Reactions: Allergies Allergy/AdvReac Type Severity Reaction Status Date / Time No Known Allergies Allergy Verified 04/01/18 10:11 Review of Systems ROS Statement: Except As Marked, All Systems Reviewed And Found Negative Musculoskeletal: Positive for: Neck Pain, Shoulder Pain Physical Exam - Reviewed Nursing Documentation Reviewed: Yes Vital Signs Reviewed: Yes - Physical Exam Appears: Positive for: Well, Non-toxic, No Acute Distress, Uncomfortable Head Exam: Positive for: ATRAUMATIC, NORMAL INSPECTION Skin: Positive for: Normal Color, Warm, Dry. Negative for: Diaphoresis, Pallor, Rash Neck: Positive for: Normal, Painless ROM, Supple. Negative for: Decreased ROM Cardiovascular/Chest: Positive for: Regular Rate, Rhythm Respiratory: Positive for: Normal Breath Sounds Back: Positive for: Normal Inspection, Decreased ROM (decreased ROM in right shoulder; scarf sign negative; lopez test negative; ROM limited on abduction on the right sholder). Negative for: L CVA Tenderness, R CVA Tenderness, Vertebral Tenderness - Laboratory Results Result Diagrams: 04/03/18 05:15 04/03/18 05:15 - ECG ECG: Positive for: Viewed By Me, Discussed With Operations Analyst Interpretation Of Abn EKG: R/o past septal infart. Ventricular hypertrophy. RBBB Rate: 74 O2 Sat by Pulse Oximetry: 99 Interpretation Of Abnormal: Discussed with Stefan Brennan at 1130 Medical Decision Making Medical Decision Making: Pt is cleared for surgery in am by Dr Durant ([id number]) Disposition - Clinical Impression Clinical Impression: Intractable back pain - Patient ED Disposition Is Patient to be Admitted: Yes Discussed With : Glenn Denise Doctor Will See Patient In The: Hospital Counseled Patient/Family Regarding: Studies Performed, Diagnosis, Need For Followup - Disposition Disposition Time: 13:00 Condition: STABLE - Pt Status Changed To: Hospital Disposition Of: Inpatient - Admit Certification Admit to Inpatient:: After my assessment, the patient will require hospitalization for at least two midnights. This is because of the severity of symptoms shown, intensity of services needed, and/or the medical risk in this patient being treated as an outpatient.
[2018-04-01 11:16] LABS: BASO % 0.7 % (0.0-2.0); EOS # 0.1 K/uL (0.0-0.7); EOS % 2.2 % (0.0-4.0); HEMOGLOBIN 12.5 g/dL (12.0-18.0); LYMPH # 1.6 K/uL (1.0-4.3); LYMPH % 34.9 % (20.0-40.0); MEAN CORPUSCULAR HEMOGLOBIN 27.1 pg (27.0-31.0); MEAN CORPUSCULAR HGB CONC 32.7 g/dL (33.0-37.0); MEAN PLATELET VOLUME 7.7 fl (7.2-11.7); MONO # 0.6 K/uL (0.0-0.8); MONO % 11.9 % (0.0-10.0); NEUT # 2.4 K/uL (1.8-7.0); NEUT % 50.3 % (50.0-75.0); NRBC % 0.1 % (0.0-0.0); RBC 4.6 Mil/uL (4.40-5.90); RED CELL DISTRIBUTION WIDTH 13.6 % (11.5-14.5); WHITE BLOOD COUNT 4.7 K/uL (4.8-10.8)
[2018-04-01 11:25] LABS: ALB/GLOB RATIO 1.3 (1.0-2.1); ALBUMIN 4.1 g/dL (3.5-5.0); ALT/SGPT 25 U/L (21-72); AST/SGOT 23 U/L (17-59); BLOOD UREA NITROGEN 25 mg/dl (9-20); CALCIUM 9.4 mg/dL (8.4-10.2); GFR NON-AFRICAN AMERICAN > 60
--- NOTE | 2018-04-01 12:37 | CARD ---
APPROVED REPORT Date of service: 04/01/2018 EKG Measurement Heart [id number] <Conclusion> Normal sinus rhythm Possible Left atrial enlargement Right bundle branch block Left anterior fascicular block Bifascicular block Left ventricular hypertrophy with repolarization abnormality Abnormal ECG
[2018-04-01 13:46] LABS: SQUAMOUS EPITHIAL < 1 /hpf (0-5); URINE BILIRUBIN NEGATIVE (NEGATIVE); URINE BLOOD SMALL (NEGATIVE); URINE CLARITY CLEAR (Clear); URINE COLOR YELLOW (YELLOW); URINE GLUCOSE (UA) NEG (NEGATIVE); URINE LEUKOCYTE ESTERASE NEG Leu/uL (Negative); URINE PROTEIN NEGATIVE (NEGATIVE); URINE UROBILINOGEN 0.2-1.0 mg/dL (0.2-1.0)
[2018-04-01] MEDS ORDERED: Naproxen 500 MG TAB PO PRN (14:15)
[2018-04-01] MEDS ORDERED: Morphine 4 MG/ML VIAL IVP PRN (14:16)
[2018-04-01] MEDS ORDERED: Lactulose 10 gm/15 ml Syrup PO PRN (14:18)
--- NOTE | 2018-04-01 14:19 | CP.PCM.CON ---
History of Present Illness - History of Present Illness History of Present Illness: Patient presents with intractable back pain. He had cardiac catheterization performed at [facility] last month due to abnormal stress test. There is no significant CAD by cardiac cath (report was given the patient and his ). There is no cardiovascular contraindication to the planned surgery. Past Patient History - Infectious Disease Hx of Infectious Diseases: None - Past Medical History & Family History Past Medical History?: Yes - Past Social History Smoking Status: Never Smoked - CARDIAC Hx Hypertension: Yes - PULMONARY Hx Respiratory Disorders: No - NEUROLOGICAL Hx Neurological Disorder: No - HEENT Hx HEENT Problems: No - RENAL Hx Chronic Kidney Disease: No - ENDOCRINE/METABOLIC Hx Endocrine Disorders: No - HEMATOLOGICAL/ONCOLOGICAL Hx Human Immunodeficiency Virus (HIV): No - INTEGUMENTARY Hx Dermatological Problems: No - MUSCULOSKELETAL/RHEUMATOLOGICAL Hx Arthritis: Yes - GASTROINTESTINAL Hx Gastrointestinal Disorders: No - GENITOURINARY/GYNECOLOGICAL Hx Genitourinary Disorders: No - PSYCHIATRIC Hx Psychophysiologic Disorder: No Hx Substance Use: No - SURGICAL HISTORY Hx Surgeries: No - ANESTHESIA Hx Anesthesia: No Meds Allergies/Adverse Reactions: Allergies Allergy/AdvReac Type Severity Reaction Status Date / Time No Known Allergies Allergy Verified 04/01/18 10:11 - Medications Medications: Current Medications Atorvastatin Calcium (Lipitor) 10 mg PO DAILY EUSE[facility] Carvedilol (Coreg) 6.25 mg PO Q12 [facility]SE[facility] Home Med (Telmisartan [Telmisartan]) 20 mg PO DAILY [facility]SE[facility] Naproxen (Naproxen) 500 mg PO Q12 PRN PRN Reason: Pain, moderate (4-7) Results - Vital Signs Recent Vital Signs: Last Vital Signs Temp 98.1 F 04/01/18 12:48 Pulse 74 04/01/18 13:20 Resp 19 04/01/18 12:48 BP 166/96 H 04/01/18 12:48 Pulse Ox 99 04/01/18 13:10 - Labs Result Diagrams: 04/01/18 11:03 04/01/18 11:03 Labs: Laboratory Results - last 24 hr 04/01/18 04/01/18 04/01/18 11:03 11:03 12:58 WBC 4.7 L RBC 4.60 Hgb 12.5 Hct 38.2 MCV 83.0 MCH 27.1 MCHC 32.7 L RDW 13.6 Plt Count 352 MPV 7.7 Neut % (Auto) 50.3 Lymph % (Auto) 34.9 [place] % (Auto) 11.9 H Eos % (Auto) 2.2 Baso % (Auto) 0.7 Neut # (Auto) 2.4 Lymph # (Auto) 1.6 [place] # (Auto) 0.6 Eos # (Auto) 0.1 Baso # (Auto) 0.0 Sodium 138 Potassium 4.3 Chloride 99 Carbon Dioxide 26 Anion Gap 17 BUN 25 H Creatinine 0.8 Est GFR ( Amer) > 60 Est GFR (Non-Af Amer) > 60 Random Glucose 116 H Calcium 9.4 Total Bilirubin 0.3 AST 23 ALT 25 Alkaline Phosphatase 47 Total Protein 7.3 Albumin 4.1 Globulin 3.2 Albumin/Globulin Ratio 1.3 Urine Color Yellow Urine Clarity Clear Urine pH 5.0 Ur Specific [place] 1.027 Urine Protein Negative Urine Glucose (UA) Neg Urine Ketones Negative Urine Blood Small Urine Nitrate Negative Urine Bilirubin Negative Urine Urobilinogen 0.2-1.0 Ur Leukocyte Esterase Neg Urine RBC (Auto) 5 H Urine Microscopic WBC 1 Ur Squamous Epith Cells < 1
[2018-04-01 14:48] LABS: INR 1.1; PROTHROMBIN TIME 12.8 Seconds (9.8-13.1)
[2018-04-01 14:51] LABS: PARTIAL THROMBOPLASTIN TIME 31.3 Seconds (25.6-37.1)
[2018-04-01] MEDS: Oxycodone/Acetaminophen 5/325 mg Tab PO PRN ×2 (16:06→23:58)
--- NOTE | 2018-04-01 17:35 | RAD ---
Date of service: 04/01/2018 HISTORY: pre op COMPARISON: 01/28/2018 FINDINGS: LUNGS: No active pulmonary disease. PLEURA: No significant pleural effusion identified, no pneumothorax apparent. CARDIOVASCULAR: No atherosclerotic calcification present No radiographic findings to suggest acute or significant cardiovascular disease. OSSEOUS STRUCTURES: No significant abnormalities. VISUALIZED UPPER ABDOMEN: Normal. OTHER FINDINGS: None. IMPRESSION: No active disease. No significant interval change compared to the prior examination(s).
--- NOTE | 2018-04-02 06:49 | CP.PCM.HP ---
History of Present Illness - History of Present Illness History of Present Illness: This is a 62 y/o male who has been suffering from shoulder pain and cervical radiculopathy for sometime. Claims that it started at work when he was carrying some isabella materials at work. He was referred for phys therapy and given pain meds but to no avail. MRI last year showed a broad based posterior ridge complex and marked stenosis of the spinal canal and compression of the spinal cord at the C3 C4 level. He was also noted other complexes and ridge encroachment at other levels with accompanying neural foraminal stenosis at the C4C5, C5C6 C6C7 and C7T1 levels. He was also noted to have moderate rotator cuff tendinosis at the right shoulder. Medical Hx HTN Had a recent normal cardiac cath at the [facility] [place] ,performed due to chest pain and abn EKG. Present on Admission - Present on Admission Any Indicators Present on Admission: No History of DVT/PE: No History of Uncontrolled Diabetes: No Urinary Catheter: No Decubitus Ulcer Present: No Review of Systems - Neurological Additional comments: cervical radiculopathy , numbess and tingling on both upper extremities radiating from the neck to both hands Past Patient History - Infectious Disease Hx of Infectious Diseases: None - Past Medical History & Family History Past Medical History?: Yes - Past Social History Smoking Status: Never Smoked - CARDIAC Hx Hypertension: Yes - PULMONARY Hx Respiratory Disorders: No - NEUROLOGICAL Hx Neurological Disorder: No - HEENT Hx HEENT Problems: No - RENAL Hx Chronic Kidney Disease: No - ENDOCRINE/METABOLIC Hx Endocrine Disorders: No - HEMATOLOGICAL/ONCOLOGICAL Hx Human Immunodeficiency Virus (HIV): No - INTEGUMENTARY Hx Dermatological Problems: No - MUSCULOSKELETAL/RHEUMATOLOGICAL Hx Arthritis: Yes - GASTROINTESTINAL Hx Gastrointestinal Disorders: No - GENITOURINARY/GYNECOLOGICAL Hx Genitourinary Disorders: No - PSYCHIATRIC Hx Psychophysiologic Disorder: No Hx Substance Use: No - SURGICAL HISTORY Hx Surgeries: No - ANESTHESIA Hx Anesthesia: No Meds Allergies/Adverse Reactions: Allergies Allergy/AdvReac Type Severity Reaction Status Date / Time No Known Allergies Allergy Verified 04/01/18 10:11 Physical Exam - Head Exam Head Exam: NORMAL INSPECTION - Eye Exam Eye Exam: Normal appearance - ENT Exam ENT Exam: Mucous Membranes Moist - Respiratory Exam Respiratory Exam: Clear to Auscultation Bilateral - GI/Abdominal Exam GI & Abdominal Exam: Normal Bowel Sounds - Neurological Exam Neurological exam: CN II-XII Intact - Psychiatric Exam Psychiatric exam: Normal Mood Results - Vital Signs Recent Vital Signs: Last Vital Signs Temp 97.6 F 04/02/18 00:33 Pulse 64 04/02/18 00:33 Resp 19 04/02/18 00:33 BP 125/69 04/02/18 00:33 Pulse Ox 95 04/02/18 00:33 - Labs Result Diagrams: 04/01/18 11:03 04/01/18 11:03 Labs: Laboratory Results - last 24 hr 04/01/18 04/01/18 04/01/18 11:03 11:03 12:58 WBC 4.7 L RBC 4.60 Hgb 12.5 Hct 38.2 MCV 83.0 MCH 27.1 MCHC 32.7 L RDW 13.6 Plt Count 352 MPV 7.7 Neut % (Auto) 50.3 Lymph % (Auto) 34.9 [place] % (Auto) 11.9 H Eos % (Auto) 2.2 Baso % (Auto) 0.7 Neut # (Auto) 2.4 Lymph # (Auto) 1.6 [place] # (Auto) 0.6 Eos # (Auto) 0.1 Baso # (Auto) 0.0 PT INR APTT Sodium 138 Potassium 4.3 Chloride 99 Carbon Dioxide 26 Anion Gap 17 BUN 25 H Creatinine 0.8 Est GFR ( Amer) > 60 Est GFR (Non-Af Amer) > 60 Random Glucose 116 H Calcium 9.4 Total Bilirubin 0.3 AST 23 ALT 25 Alkaline Phosphatase 47 Total Protein 7.3 Albumin 4.1 Globulin 3.2 Albumin/Globulin Ratio 1.3 Urine Color Yellow Urine Clarity Clear Urine pH 5.0 Ur Specific [place] 1.027 Urine Protein Negative Urine Glucose (UA) Neg Urine Ketones Negative Urine Blood Small Urine Nitrate Negative Urine Bilirubin Negative Urine Urobilinogen 0.2-1.0 Ur Leukocyte Esterase Neg Urine RBC (Auto) 5 H Urine Microscopic WBC 1 Ur Squamous Epith Cells < 1 04/01/18 14:35 WBC RBC Hgb Hct MCV MCH MCHC RDW Plt Count MPV Neut % (Auto) Lymph % (Auto) [place] % (Auto) Eos % (Auto) Baso % (Auto) Neut # (Auto) Lymph # (Auto) [place] # (Auto) Eos # (Auto) Baso # (Auto) PT 12.8 INR 1.1 APTT 31.3 Sodium Potassium Chloride Carbon Dioxide Anion Gap BUN Creatinine Est GFR ( Amer) Est GFR (Non-Af Amer) Random Glucose Calcium Total Bilirubin AST ALT Alkaline Phosphatase Total Protein Albumin Globulin Albumin/Globulin Ratio Urine Color Urine Clarity Urine pH Ur Specific [place] Urine Protein Urine Glucose (UA) Urine Ketones Urine Blood Urine Nitrate Urine Bilirubin Urine Urobilinogen Ur Leukocyte Esterase Urine RBC (Auto) Urine Microscopic WBC Ur Squamous Epith Cells Assessment & Plan (1) Cervical herniated disc Status: Acute (2) Cervical spondylosis Status: Acute (3) Cervical stenosis of spinal canal Status: Acute (4) HTN (hypertension) Status: Acute - Assessment and Plan (Free Text) Plan: Discussed with patient re surgical options Consult with Dr ford Consult with Dr Durant medically stable for surgery
--- NOTE | 2018-04-02 07:08 | CP.PCM.CON ---
History of Present Illness - History of Present Illness History of Present Illness: Neurosurgical consult: Dr. Sykes Patient is a 63 y/o RHD male who presents with severe neck pain which has progressed over the past six months. He reports lifting a heavy pack of isabella material 6 months ago which initiated the neck pain. The pain has been daily, affecting his usual activities. He has tried and failed conservative management with PT and oral medications. The pain is sharp and stabbing and located diffuse posteriorly. The pain frequently radiates down both UE, worse in the right. 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 He was scheduled for cervical surgery 2 months ago but was cancelled due to abnormal stress test. He presents, cleared by cardiology following successful cardiac catheterization. He denies any difficulty ambulating/SOB/N/V/D/fever/dysuria/melena. Review of Systems - Review of Systems All systems: reviewed and no additional remarkable complaints except Review of Systems: as per HPI Past Patient History - Infectious Disease Hx of Infectious Diseases: None - Past Medical History & Family History Past Medical History?: Yes Past Family History: Reviewed and not pertinent - Past Social History Smoking Status: Never Smoked Alcohol: None Drugs: Denies - CARDIAC Hx Hypertension: Yes - PULMONARY Hx Respiratory Disorders: No - NEUROLOGICAL Hx Neurological Disorder: No - HEENT Hx HEENT Problems: No - RENAL Hx Chronic Kidney Disease: No - ENDOCRINE/METABOLIC Hx Endocrine Disorders: No - HEMATOLOGICAL/ONCOLOGICAL Hx Human Immunodeficiency Virus (HIV): No - INTEGUMENTARY Hx Dermatological Problems: No - MUSCULOSKELETAL/RHEUMATOLOGICAL Hx Arthritis: Yes - GASTROINTESTINAL Hx Gastrointestinal Disorders: No - GENITOURINARY/GYNECOLOGICAL Hx Genitourinary Disorders: No - PSYCHIATRIC Hx Psychophysiologic Disorder: No Hx Substance Use: No - SURGICAL HISTORY Hx Surgeries: No - ANESTHESIA Hx Anesthesia: No Meds Allergies/Adverse Reactions: Allergies Allergy/AdvReac Type Severity Reaction Status Date / Time No Known Allergies Allergy Verified 04/01/18 10:11 - Medications Medications: Current Medications Atorvastatin Calcium (Lipitor) 10 mg PO HS [facility] Last Admin: 04/01/18 22:41 Dose: 10 mg Carvedilol (Coreg) 6.25 mg PO Q12 [facility] Last Admin: 04/02/18 06:56 Dose: 6.25 mg Docusate Sodium (Colace) 100 mg PO DAILY [facility] Last Admin: 04/01/18 16:03 Dose: 100 mg Lactulose (Enulose) 10 gm PO DAILY PRN PRN Reason: Constipation Losartan Potassium (Cozaar) 25 mg PO DAILY [facility] Last Admin: 04/01/18 16:08 Dose: 25 mg Morphine Sulfate (Morphine) 2 mg IVP Q6 PRN PRN Reason: Pain, severe (8-10) Naproxen (Naproxen) 500 mg PO Q12 PRN PRN Reason: Pain, moderate (4-7) Oxycodone/Acetaminophen (Percocet 5/325 Mg Tab) 1 tab PO Q6 PRN PRN Reason: Pain, moderate (4-7) Stop: 04/04/18 14:17 Last Admin: 04/01/18 23:58 Dose: 1 tab Physical Exam - Constitutional Appears: Well, No Acute Distress - Head Exam Head Exam: ATRAUMATIC, NORMOCEPHALIC - Eye Exam Eye Exam: EOMI, Normal appearance, PERRL - ENT Exam ENT Exam: Mucous Membranes Moist - Neck Exam Additional comments: Cervical midline tenderness, no paraspinal tenderness no lesions, no masses, no erythema sensation and motor intact AXN/MN/UN/RN. 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 absent: Tenderness - Extremities Exam Extremities exam: Positive for: normal inspection - Neurological Exam Neurological exam: Alert, Oriented x3 - Psychiatric Exam Psychiatric exam: Normal Affect, Normal Mood - Skin Skin Exam: Normal Color, Warm Results - Vital Signs Recent Vital Signs: Last Vital Signs Temp 97.6 F 04/02/18 00:33 Pulse 70 04/02/18 06:56 Resp 19 04/02/18 00:33 BP 140/75 04/02/18 06:56 Pulse Ox 95 04/02/18 00:33 - Labs Result Diagrams: 04/01/18 11:03 04/01/18 11:03 Labs: Laboratory Results - last 24 hr 04/01/18 04/01/18 04/01/18 11:03 11:03 12:58 WBC 4.7 L RBC 4.60 Hgb 12.5 Hct 38.2 MCV 83.0 MCH 27.1 MCHC 32.7 L RDW 13.6 Plt Count 352 MPV 7.7 Neut % (Auto) 50.3 Lymph % (Auto) 34.9 [place] % (Auto) 11.9 H Eos % (Auto) 2.2 Baso % (Auto) 0.7 Neut # (Auto) 2.4 Lymph # (Auto) 1.6 [place] # (Auto) 0.6 Eos # (Auto) 0.1 Baso # (Auto) 0.0 PT INR APTT Sodium 138 Potassium 4.3 Chloride 99 Carbon Dioxide 26 Anion Gap 17 BUN 25 H Creatinine 0.8 Est GFR ( Amer) > 60 Est GFR (Non-Af Amer) > 60 Random Glucose 116 H Calcium 9.4 Total Bilirubin 0.3 AST 23 ALT 25 Alkaline Phosphatase 47 Total Protein 7.3 Albumin 4.1 Globulin 3.2 Albumin/Globulin Ratio 1.3 Urine Color Yellow Urine Clarity Clear Urine pH 5.0 Ur Specific [place] 1.027 Urine Protein Negative Urine Glucose (UA) Neg Urine Ketones Negative Urine Blood Small Urine Nitrate Negative Urine Bilirubin Negative Urine Urobilinogen 0.2-1.0 Ur Leukocyte Esterase Neg Urine RBC (Auto) 5 H Urine Microscopic WBC 1 Ur Squamous Epith Cells < 1 04/01/18 14:35 WBC RBC Hgb Hct MCV MCH MCHC RDW Plt Count MPV Neut % (Auto) Lymph % (Auto) [place] % (Auto) Eos % (Auto) Baso % (Auto) Neut # (Auto) Lymph # (Auto) [place] # (Auto) Eos # (Auto) Baso # (Auto) PT 12.8 INR 1.1 APTT 31.3 Sodium Potassium Chloride Carbon Dioxide Anion Gap BUN Creatinine Est GFR ( Amer) Est GFR (Non-Af Amer) Random Glucose Calcium Total Bilirubin AST ALT Alkaline Phosphatase Total Protein Albumin Globulin Albumin/Globulin Ratio Urine Color Urine Clarity Urine pH Ur Specific [place] Urine Protein Urine Glucose (UA) Urine Ketones Urine Blood Urine Nitrate Urine Bilirubin Urine Urobilinogen Ur Leukocyte Esterase Urine RBC (Auto) Urine Microscopic WBC Ur Squamous Epith Cells Assessment & Plan (1) Cervical spondylosis Assessment and Plan: -Dr. Sykes proposes anterior cervical discectomy and fusion at level C3-C4 in OR today -risks/benefits/alternatives were d/w patient who understands and agrees to proceed with above procedure -NPO -above d/w Dr. Sykes in agreement Status: Acute
[2018-04-02] MEDS ORDERED: Absorbable Gelatin Sponge Size 12-7 ONE (07:15)
[2018-04-02] MEDS ORDERED: Thrombin Topical 5,000 Int Units Spray Kit ONE (07:16)
[2018-04-02] MEDS ORDERED: Oxycodone/Acetaminophen 5/325 mg Tab PO PRN ×2 (07:18)
[2018-04-02] MEDS ORDERED: Morphine 4 MG/ML VIAL IVP PRN (07:18)
[2018-04-02] MEDS ORDERED: Succinylcholine Chloride 20 mg/ml Syr (5 ml) IV ONE (07:20)
[2018-04-02] MEDS ORDERED: Propofol 10 mg/ml Inj (20 ML) ONE (07:20)
[2018-04-02] MEDS ORDERED: Sevoflurane - Inhalation Anesthetic Liq (250 ml) ONE (07:23)
[2018-04-02] MEDS ORDERED: Etomidate 20 mg/10ml Inj IV ONE (07:38)
[2018-04-02] MEDS ORDERED: Esmolol 100 mg/10ml Inj IV ONE (07:39)
[2018-04-02] MEDS ORDERED: Phenylephrine 10 mg/ml Inj ONE (07:39)
[2018-04-02] MEDS ORDERED: Lactated Ringer's 1,000 ML IV ONE (07:45)
[2018-04-02] MEDS ORDERED: Rocuronium 10 mg/ml (5 ml) ONE ×2 (07:59→08:56)
[2018-04-02] MEDS ORDERED: ePHEDrine 50 mg/ml Inj ONE (08:05)
[2018-04-02] MEDS ORDERED: APROTININ/FIBRINOGEN(TISSEEL) ONE (08:06)
[2018-04-02] MEDS ORDERED: Absorbable Gelatin Sponge Size 12-7 TP ONE ×2 (08:26→09:10)
[2018-04-02] MEDS ORDERED: HEMOSTATIC MATRIX 10 ML DIS.NEEDLE TOP ONE ×2 (08:26→09:12)
[2018-04-02] MEDS ORDERED: Thrombin Topical 5,000 Int Units Spray Kit TOP ONE ×2 (08:26→09:10)
[2018-04-02] MEDS ORDERED: Dexamethasone 4 mg/1 ml ONE (08:30)
[2018-04-02] MEDS ORDERED: Neostigmine 1:1000 (1 mg/ml) Inj ONE (08:32)
[2018-04-02] MEDS ORDERED: Naloxone 0.4 mg/ml Inj (Adult) ONE (09:25)
[2018-04-02] MEDS ORDERED: HYDROmorphone 0.5 mg/0.5 ml ISec IVP PRN (09:28)
--- NOTE | 2018-04-02 09:43 | PCM.SURG1 ---
Surgeon's Initial Post Op Note - Surgeon's Notes Surgeon: Tien Sykes MD Spot Remover: Cheko Man PA-C Type of Anesthesia: General Endo Anesthesia Administered By: Orion LEMUS Pre-Operative Diagnosis: Cervical spondylosis Operative Findings: see complete operative report Post-Operative Diagnosis: C3-C4 cervical spondylosis Operation Performed: Anterior cervical discectomy and fusion at C3-C4 Specimen/Specimens Removed: none Estimated Blood Loss: EBL {In ML}: 20 Blood Products Given: N/A Drains Used: Osito Sosa (right) Post-Op Condition: Good Date of Surgery/Procedure: 04/02/18 Time of Surgery/Procedure: 08:06
--- NOTE | 2018-04-02 12:02 | RAD ---
Date of service: 04/02/2018 PROCEDURE: Intraoperative Fluoroscopy. HISTORY: ACDF FINDINGS: Fluoroscopic assistance was provided for ACDF. Please refer to the operative report from JABARI Haddad DR, MD. Total fluoroscopic time (continuous mode) utilized during the procedure 10.1 seconds. Total exam DLP: 0.87 (mGy).
[2018-04-02] MEDS: Lactated Ringer's 1,000 ML IV SCH (13:05)
--- NOTE | 2018-04-02 13:46 | OP ---
PROCEDURE DATE: 04/02/2018 PREOPERATIVE DIAGNOSIS: Cervical spondylosis with myelopathy. POSTOPERATIVE DIAGNOSIS: Cervical spondylosis with myelopathy. PROCEDURE: Partial vertebrectomy of C3 and C4, diskectomy of C3 and C4, interbody fusion of C3-4 using PEEK and bone, plating and instrumentation C3-C4 using spinal elements plate. Fluoroscopy has been used. Microscope has been used. SURGEON: Tien Sykes MD HOGSHEAD STRIPPER: Cheko Man, physician clinical laboratory assistant who helped me to perform the surgery, stayed throughout the case from the beginning to the end. DESCRIPTION OF PROCEDURE: The patient was brought to the operating room, anesthetized with general endotracheal anesthesia, placed in a supine position. The head was placed on a doughnut. Care was taken to protect all the pressure points. After prepping and draping the area right side of the neck, a horizontal skin incision in the neck region has been made. Bleeding skins have been controlled with bipolar process improvement analyst. Using a Bovie process improvement analyst, the platysma has been cut. Dissection has been carried out between the trachea and esophagus medially and sternomastoid carried out laterally. Prevertebral fascia has been cauterized and cut. Identification of levels has been done with the help of fluoroscopy. Longus colli has been detached, attachment of vertebral bodies of C3 and C4. Dyonics retractor has been applied. Rest of the operation had been carried out with microscopic magnification and illumination. PARTIAL VERTEBRECTOMY OF C3 AND C4, DISCECTOMY OF C3-4: By using a high-speed drill, the vertebral bodies of C3 and C4 have been drilled. Drilling is continued posteriorly. Intermittently, diskectomy has been performed. There was a large osteophyte noted coming out from C3 and C4. They have been drilled. Partial vertebrectomy including removal of the osteophytes and half of the vertebral bodies of C3, C4 has been performed. After the disk removal, the posterior longitudinal ligament has been opened. Dura has been decompressed from side to side. INTERBODY FUSION OF C3-4 USING PEEK AND BONE: PEEK implant has been brought in, filled with demineralized bone, and gently tapped into space creating a partial vertebrectomy of C3-C4. Position has been confirmed to be good. PLATING AND INSTRUMENTATION C3-C4 USING SPINAL ELEMENTS PLATE: The spinal elements plate has been placed at vertebral bodies of C3-4 by using 12-mm screw. It has been secured under fluoroscopic control. All these has been found to be in good position. After that, hemostasis was best achieved. Osito drain was placed in the wound and brought out through a separate stab neck skin incision. Platysma was closed with 3-0 Vicryl. Skin has been with intradermal 3-0 Vicryl stitches. The patient tolerated the procedure. After procedure, mobilized to the recovery room in stabilized condition. Tien Sykes MD
[2018-04-02] MEDS: ceFAZolin 1 GM in Sodium Chloride 0.9% 100 ML IVPB SCH ×3 (15:30→17:42)
[2018-04-02] MEDS ORDERED: Docusate-Senna 50 mg-8.6 mg Tab PO SCH (22:00)
[2018-04-03] MEDS: ceFAZolin 1 GM in Sodium Chloride 0.9% 100 ML IVPB SCH ×2 (01:08→08:45)
--- NOTE | 2018-04-03 03:04 | CP.PCM.PN ---
Subjective - Date & Time of Evaluation Date of Evaluation: 04/02/18 Time of Evaluation: 08:30 - Subjective Subjective: Pt currently in PACU s/p Cervical diskectomy C3-C4. Plan of care discussed with GERHARD Barrera. Chart, labs, and meds reviewed. Objective - Vital Signs/Intake and Output Vital Signs (last 24 hours): Temp Pulse Resp BP Pulse Ox 98.3 F 92 H 18 138/67 95 04/03/18 01:16 04/03/18 01:16 04/03/18 01:16 04/03/18 01:16 04/03/18 01:16 Intake and Output: 04/02/18 04/03/18 18:59 06:59 Intake Total 1550 Output Total 125 Balance 1425 - Medications Medications: Current Medications Acetaminophen (Tylenol 325mg Tab) 650 mg PO Q4 PRN PRN Reason: Fever 101 degrees fahrenheit Atorvastatin Calcium (Lipitor) 10 mg PO HS [facility] Last Admin: 04/02/18 21:00 Dose: 10 mg Carvedilol (Coreg) 6.25 mg PO Q12 [facility] Last Admin: 04/02/18 21:00 Dose: 6.25 mg Cyclobenzaprine HCl (Flexeril) 10 mg PO Q8 PRN PRN Reason: Muscle spasm Dexamethasone (Decadron) 4 mg PO Q12 [facility] Stop: 04/05/18 21:01 Last Admin: 04/02/18 21:00 Dose: 4 mg Cefazolin Sodium 1 gm/ Sodium (Chloride) 100 mls @ 100 mls/hr IVPB Q8 [facility]; Protocol Stop: 04/04/18 09:01 Last Admin: 04/03/18 01:08 Dose: 100 mls/hr Lactated Ringer's (Lactated Ringer's) 1,000 mls @ 100 mls/hr IV .Q10H [facility] Last Admin: 04/02/18 13:05 Dose: 200 mls Lactulose (Enulose) 10 gm PO DAILY PRN PRN Reason: Constipation Losartan Potassium (Cozaar) 25 mg PO DAILY [facility] Last Admin: 04/01/18 16:08 Dose: 25 mg Morphine Sulfate (Morphine) 2 mg IVP Q6 PRN PRN Reason: Pain, severe (8-10) Last Admin: 04/02/18 20:47 Dose: 2 mg Morphine Sulfate (Morphine) 2 mg IVP Q4 PRN PRN Reason: Pain, severe (8-10) Naproxen (Naproxen) 500 mg PO Q12 PRN PRN Reason: Pain, moderate (4-7) Ondansetron HCl (Zofran Inj) 4 mg IVP Q4 PRN PRN Reason: Nausea/Vomiting Oxycodone/Acetaminophen (Percocet 5/325 Mg Tab) 1 tab PO Q4 PRN PRN Reason: Pain, Mild (1-3) Stop: 04/05/18 07:19 Oxycodone/Acetaminophen (Percocet 5/325 Mg Tab) 2 tab PO Q4 PRN PRN Reason: Pain, moderate (4-7) Stop: 04/05/18 07:19 Last Admin: 04/03/18 01:02 Dose: 2 tab Senna/Docusate Sodium (Senokot S 50 Mg-8.6 Mg) 2 tab PO HS [facility] Last Admin: 04/02/18 21:00 Dose: 2 tab - Labs Labs: 04/01/18 11:03 04/01/18 11:03 PT 12.8 Seconds (9.8-13.1) 04/01/18 14:35 INR 1.1 04/01/18 14:35 APTT 31.3 Seconds (25.6-37.1) 04/01/18 14:35 Assessment and Plan - Assessment and Plan (Free Text) Assessment: Assessment/Impression/Major Problems Now: 1.) S/P Cervical diskectomy C3-C4 -procedure done by Dr. Sykes, as pt had been experiencing intractable back pain and associated shoulder weakness. -Case discussed with GERHARD Barrera. -Avoid hematoma formation. -Decadron BID ordered postoperatively to reduce inflammation; monitor for swelling and assess swallowing. No cervical collar at this time. -Follow PT/OT recommendations.
[2018-04-03] MEDS: Lactated Ringer's 1,000 ML IV SCH (03:30)
[2018-04-03 06:11] LABS: HEMOGLOBIN 11.7 g/dL (12.0-18.0); MEAN CELL VOLUME 80.3 fl (80.0-94.0); MEAN CORPUSCULAR HEMOGLOBIN 27.3 pg (27.0-31.0); RBC 4.28 Mil/uL (4.40-5.90); RED CELL DISTRIBUTION WIDTH 13.8 % (11.5-14.5); WHITE BLOOD COUNT 10.3 K/uL (4.8-10.8)
[2018-04-03 06:14] LABS: BLOOD UREA NITROGEN 21 mg/dl (9-20); CALCIUM 8.9 mg/dL (8.4-10.2); GFR NON-AFRICAN AMERICAN > 60
[2018-04-03 08:18] VITALS: RESP 18
--- NOTE | 2018-04-03 08:21 | CP.PCM.PN ---
Subjective - Date & Time of Evaluation Date of Evaluation: 04/03/18 Time of Evaluation: 08:20 - Subjective Subjective: Patient seen and examined at bedside. Pain is well controlled. Able to be OOB ambulating without issues. Denies CP/difficulty breathing or swallowing/N/fever/dizziness. Objective - Vital Signs/Intake and Output Vital Signs (last 24 hours): Temp Pulse Resp BP Pulse Ox 97.5 F L 82 18 144/76 100 04/03/18 08:17 04/03/18 08:17 04/03/18 08:17 04/03/18 08:17 04/03/18 08:17 Intake and Output: 04/03/18 04/03/18 06:59 18:59 Intake Total 880 Output Total 600 Balance 280 - Medications Medications: Current Medications Acetaminophen (Tylenol 325mg Tab) 650 mg PO Q4 PRN PRN Reason: Fever 101 degrees fahrenheit Atorvastatin Calcium (Lipitor) 10 mg PO HS [facility] Last Admin: 04/02/18 21:00 Dose: 10 mg Carvedilol (Coreg) 6.25 mg PO Q12 [facility] Last Admin: 04/02/18 21:00 Dose: 6.25 mg Cyclobenzaprine HCl (Flexeril) 10 mg PO Q8 PRN PRN Reason: Muscle spasm Dexamethasone (Decadron) 4 mg PO Q12 [facility] Stop: 04/05/18 21:01 Last Admin: 04/02/18 21:00 Dose: 4 mg Cefazolin Sodium 1 gm/ Sodium (Chloride) 100 mls @ 100 mls/hr IVPB Q8 [facility]; Protocol Stop: 04/04/18 09:01 Last Admin: 04/03/18 01:08 Dose: 100 mls/hr Lactated Ringer's (Lactated Ringer's) 1,000 mls @ 100 mls/hr IV .Q10H [facility] Last Admin: 04/02/18 13:05 Dose: 200 mls Lactulose (Enulose) 10 gm PO DAILY PRN PRN Reason: Constipation Losartan Potassium (Cozaar) 25 mg PO DAILY [facility] Last Admin: 04/01/18 16:08 Dose: 25 mg Morphine Sulfate (Morphine) 2 mg IVP Q6 PRN PRN Reason: Pain, severe (8-10) Last Admin: 04/02/18 20:47 Dose: 2 mg Morphine Sulfate (Morphine) 2 mg IVP Q4 PRN PRN Reason: Pain, severe (8-10) Naproxen (Naproxen) 500 mg PO Q12 PRN PRN Reason: Pain, moderate (4-7) Ondansetron HCl (Zofran Inj) 4 mg IVP Q4 PRN PRN Reason: Nausea/Vomiting Oxycodone/Acetaminophen (Percocet 5/325 Mg Tab) 1 tab PO Q4 PRN PRN Reason: Pain, Mild (1-3) Stop: 04/05/18 07:19 Oxycodone/Acetaminophen (Percocet 5/325 Mg Tab) 2 tab PO Q4 PRN PRN Reason: Pain, moderate (4-7) Stop: 04/05/18 07:19 Last Admin: 04/03/18 01:02 Dose: 2 tab Senna/Docusate Sodium (Senokot S 50 Mg-8.6 Mg) 2 tab PO HS [facility] Last Admin: 04/02/18 21:00 Dose: 2 tab - Labs Labs: 04/03/18 05:15 04/03/18 05:15 PT 12.8 Seconds (9.8-13.1) 04/01/18 14:35 INR 1.1 04/01/18 14:35 APTT 31.3 Seconds (25.6-37.1) 04/01/18 14:35 - Neck Exam Additional comments: Dressings CDI no signs of hematoma JOHN drain with minimal bloody drainage (30cc over last 24 hrs) sensation and motor intact MN/UN/RN neg clonus - Neurological Exam Neurological Exam: CN II-XII Intact Assessment and Plan (1) Cervical spondylosis Assessment & Plan: POD#1 s/p ACDF C3-4 -JOHN drain removed, dry dressings applied -PT/OT -d/c planning to home today -f/u in office within 7-10 days -above d/w Dr. Sykes in agreement Status: Acute
--- NOTE | 2018-04-03 11:54 | CARD ---
APPROVED REPORT Date of service: 04/02/2018 EKG Measurement Heart [id number] OR [id number] [id number] <Conclusion> Normal sinus rhythm Possible Left atrial enlargement Right bundle branch block Left anterior fascicular block Bifascicular block Left ventricular hypertrophy with repolarization abnormality Abnormal ECG
[2018-04-03 12:06] VITALS: BP 135/65; TEMP 97.6
[2018-04-03 13:22] VITALS: O2SAT 99
[2018-04-03 15:45] VITALS: PULSE 90
--- NOTE | 2018-04-07 09:15 | CP.PCM.DIS ---
Provider - Provider Date of Admission: 04/01/18 11:05 Attending physician: Glenn Denise MD Consults: 04/01/18 11:05 Neuro Surgery Consult Stat Comment: Consulting Provider: Tien Ford Consulting Physician: Tien Ford Reason for Consult: back pain 04/01/18 11:29 Cardiology Consult Stat Comment: from Dr Bolaños Consulting Provider: Macey Durant Consulting Physician: Macey Durant Reason for Consult: clear for surgery 04/02/18 07:18 Case Management Referral Routine Comment: Physician Instructions: Reason For Exam: Reason for Referral: Discharge Planning Time Spent in preparation of Discharge (in minutes): 30 Diagnosis - Discharge Diagnosis (1) Cervical herniated disc Status: Acute (2) Cervical spondylosis Status: Acute (3) Cervical stenosis of spinal canal Status: Acute (4) HTN (hypertension) Status: Acute Hospital Course - Lab Results Lab Results: Most Recent Lab Values WBC 10.3 K/uL (4.8-10.8) D 04/03/18 05:15 RBC 4.28 Mil/uL (4.40-5.90) L 04/03/18 05:15 Hgb 11.7 g/dL (12.0-18.0) L 04/03/18 05:15 Hct 34.4 % (35.0-51.0) L 04/03/18 05:15 MCV 80.3 fl (80.0-94.0) D 04/03/18 05:15 MCH 27.3 pg (27.0-31.0) 04/03/18 05:15 MCHC 34.0 g/dL (33.0-37.0) 04/03/18 05:15 RDW 13.8 % (11.5-14.5) 04/03/18 05:15 Plt Count 322 K/uL (130-400) 04/03/18 05:15 MPV 7.7 fl (7.2-11.7) 04/01/18 11:03 Neut % (Auto) 50.3 % (50.0-75.0) 04/01/18 11:03 Lymph % (Auto) 34.9 % (20.0-40.0) 04/01/18 11:03 [place] % (Auto) 11.9 % (0.0-10.0) H 04/01/18 11:03 Eos % (Auto) 2.2 % (0.0-4.0) 04/01/18 11:03 Baso % (Auto) 0.7 % (0.0-2.0) 04/01/18 11:03 Neut # (Auto) 2.4 K/uL (1.8-7.0) 04/01/18 11:03 Lymph # (Auto) 1.6 K/uL (1.0-4.3) 04/01/18 11:03 [place] # (Auto) 0.6 K/uL (0.0-0.8) 04/01/18 11:03 Eos # (Auto) 0.1 K/uL (0.0-0.7) 04/01/18 11:03 Baso # (Auto) 0.0 K/uL (0.0-0.2) 04/01/18 11:03 PT 12.8 Seconds (9.8-13.1) 04/01/18 14:35 INR 1.1 04/01/18 14:35 APTT 31.3 Seconds (25.6-37.1) 04/01/18 14:35 Sodium 135 mmol/l (132-148) 04/03/18 05:15 Potassium 4.2 MMOL/L (3.6-5.0) 04/03/18 05:15 Chloride 97 mmol/L (98-107) L 04/03/18 05:15 Carbon Dioxide 28 mmol/L (22-30) 04/03/18 05:15 Anion Gap 14 (10-20) 04/03/18 05:15 BUN 21 mg/dl (9-20) H 04/03/18 05:15 Creatinine 0.9 mg/dl (0.8-1.5) 04/03/18 05:15 Est GFR ( Amer) > 60 04/03/18 05:15 Est GFR (Non-Af Amer) > 60 04/03/18 05:15 Random Glucose 124 mg/dL (75-110) H 04/03/18 05:15 Calcium 8.9 mg/dL (8.4-10.2) 04/03/18 05:15 Total Bilirubin 0.3 mg/dl (0.2-1.3) 04/01/18 11:03 AST 23 U/L (17-59) 04/01/18 11:03 ALT 25 U/L (21-72) 04/01/18 11:03 Alkaline Phosphatase 47 U/L (38-126) 04/01/18 11:03 Total Protein 7.3 G/DL (6.3-8.2) 04/01/18 11:03 Albumin 4.1 g/dL (3.5-5.0) 04/01/18 11:03 Globulin 3.2 gm/dL (2.2-3.9) 04/01/18 11:03 Albumin/Globulin Ratio 1.3 (1.0-2.1) 04/01/18 11:03 Urine Color Yellow (YELLOW) 04/01/18 12:58 Urine Clarity Clear (Clear) 04/01/18 12:58 Urine pH 5.0 (5.0-8.0) 04/01/18 12:58 Ur Specific [place] 1.027 (1.003-1.030) 04/01/18 12:58 Urine Protein Negative mg/dL (NEGATIVE) 04/01/18 12:58 Urine Glucose (UA) Neg mg/dL (NEGATIVE) 04/01/18 12:58 Urine Ketones Negative mg/dL (NEGATIVE) 04/01/18 12:58 Urine Blood Small (NEGATIVE) 04/01/18 12:58 Urine Nitrate Negative (NEGATIVE) 04/01/18 12:58 Urine Bilirubin Negative (NEGATIVE) 04/01/18 12:58 Urine Urobilinogen 0.2-1.0 mg/dL (0.2-1.0) 04/01/18 12:58 Ur Leukocyte Esterase Neg Mervat/uL (Negative) 04/01/18 12:58 Urine RBC (Auto) 5 /hpf (0-3) H 04/01/18 12:58 Urine Microscopic WBC 1 /hpf (0-5) 04/01/18 12:58 Ur Squamous Epith Cells < 1 /hpf (0-5) 04/01/18 12:58 Blood Type A POSITIVE 04/02/18 05:35 Antibody Screen Negative 04/02/18 05:35 BBK History Checked Patient has bt 04/02/18 05:35 - Hospital Course Hospital Course: This is a 62 y/o male admitted for C3C4 spondylosis . A C3C4 anterior discectomy was performed. Patient had an uneventful post op period. He remained well and was discharged in stable condition the on 2nd day post op. He was advised to follow up with Dr Ford in 1 week. Discharge Exam - Head Exam Head Exam: ATRAUMATIC, NORMAL INSPECTION - Eye Exam Eye Exam: Normal appearance - Respiratory Exam Respiratory Exam: Clear to PA & Lateral - Cardiovascular Exam Cardiovascular Exam: REGULAR RHYTHM - GI/Abdominal Exam GI & Abdominal Exam: Normal Bowel Sounds - Neurological Exam Neurological exam: CN II-XII Intact, Normal Gait Discharge Plan - Discharge Medications Prescriptions: Cyclobenzaprine [Flexeril] 10 mg PO Q8 PRN #20 tab PRN Reason: Muscle Spasm oxyCODONE/Acetaminophen [Percocet 5/325 mg Tab] 1 tab PO Q4 PRN #10 tab PRN Reason: Pain, Moderate (4-7) - Follow Up Plan Condition: STABLE Disposition: HOME/ ROUTINE Instructions: Anterior Cervical Fusion (DC) Additional Instructions: follow up with dr ford 1-2 weeks Referrals: Tien Ford MD [Staff Provider] - Glenn Denise MD [Family Provider] - Macey Durant MD [Staff Provider] -
--- NOTE | 2018-04-09 19:24 | PQF ---
PROVIDER RESPONSE TEXT: Provider was unable to determine a response for this query. REVIEWER QUERY TEXT: Documentation Clarification Please further specify in the medical record if the patient has a current compression of the spinal c ord: versus history of compression of the spinal cord OR: Other explanation of clinical findings H and P includes; MRI last year showed a broad based posterior ridge complex and marked stenosis of t he spinal canal and compression of the spinal cord at the C3 C4 level. He was also noted other comple xes and ridge encroachment at other levels with accompanying neural foraminal stenosis at the C4C5, C5C6 C6C7 and C7T1 levels. He was also noted to have moderate rotator cuff tendinosis at the right shoulder. (2) Cervical spondylosis Status: Acute (3) Cervical stenosis of spinal canal Status: Acute (4) HTN (hypertension) Status: Acute The patient's Clinical Indicators include: --- Query created by: Glendy Mueller on 04/02/2018 10:48 AM Electronically signed by: Glenn Denise MD 04/09/2018 7:21 PM
== END 2018-04-03 14:03 | disposition home or self-care (01) | DRG 473 ==
LOC: H.ER 10:03 → H.ERHOLD 11:05 → H.MEDSURG1 13:29 → H.TEL 04-02 15:33
PROVIDERS: ADMIT Family Medicine; ATTEND Family Medicine
PROC: 0RB30ZZ Excision of Cervical Vertebral Disc, Open Approach (ICD-10-PCS; 2018-04-02)
PROC: 0RG10A0 Fusion of Cervical Vertebral Joint with Interbody Fusion Device, Anterior Approach, Anterior Column, Open Approach (ICD-10-PCS; principal; 2018-04-02 07:45)
DX: M47.12 Other spondylosis with myelopathy, cervical region (principal); X50.0XXA Overexertion from strenuous movement or load, initial encounter; M77.9 Enthesopathy, unspecified; I10 Essential (primary) hypertension; M19.90 Unspecified osteoarthritis, unspecified site; M48.02 Spinal stenosis, cervical region; M54.12 Radiculopathy, cervical region; M50.21 Other cervical disc displacement, high cervical region